=== PATIENT | female | born 1965 | race Caucasian/White ===

== ENCOUNTER 2021-07-03 14:12 | Inpatient (IN) | payer OTHER ==
[~2021-07-03] VITALS: Ht 154.9 cm; Wt 59.8 kg
[2021-07-03 15:08] LABS: ALANINE AMINOTRANSFERASE 25 U/L (12-78); ANION GAP 9 mmol/L (5-15); CALCIUM 8.7 mg/dL (8.5-10.1); CHLORIDE 95 mmol/L (98-107)
[2021-07-03 15:09] LABS: BASOPHILS % (AUTO) 0 % (0-1); EOSINOPHILS % (AUTO) 0 % (1-7); LYMPHOCYTES % (AUTO) 8 % (22-44); MEAN CORPUSCULAR HEMOGLOBIN 26.8 pg (27.0-34.8); MEAN CORPUSCULAR HGB CONC 32.4 g/dL (32.4-35.8); MEAN PLATELET VOLUME 6.9 fL (7.4-10.4); MONOCYTES % (AUTO) 7 % (2-9); NEUTROPHILS % (AUTO) 85 % (42-75); PLATELET COUNT 308 x10^3/uL (130-400); RED BLOOD COUNT 3.11 x10^6/uL (3.82-5.3); RED CELL DISTRIBUTION WIDTH 15.8 % (9.6-15.2)
[2021-07-03 15:12] LABS: ALKALINE PHOSPHATASE 88 U/L (45-117); BILIRUBIN,TOTAL 0.5 mg/dL (0.2-1.0); TOTAL PROTEIN 6.8 g/dL (6.4-8.2); TROPONIN I 0.035 ng/mL (0.000-0.045)
[2021-07-03 15:42] LABS: ANISOCYTOSIS 1+; HYPOCHROMIA 1+; STOMATOCYTES 1+
[2021-07-03 15:43] LABS: POLYCHROMASIA 1+
[2021-07-03 15:44] LABS: <PLATELET ESTIMATE> ADEQUATE; <PLT MORPHOLOGY> NORMAL PLT MORPH
[2021-07-03] MEDS ORDERED: SODIUM CHLORIDE 0.9% 1,000 ML IV ONE (17:00)
[2021-07-03] MEDS ORDERED: SODIUM CHLORIDE FLUSH 10ML SYR IVF PRN (17:00)
[2021-07-03] MEDS ORDERED: POTASSIUM CHLORIDE 20 MEQ TAB.ER.PRT PO ONE (17:00)
[2021-07-03 17:20] LABS: MICROSCOPIC AUTO
[2021-07-03] MEDS ORDERED: POTASSIUM CHLORIDE 20 MEQ TAB.ER.PRT ONE (17:26)
--- NOTE | 2021-07-03 18:10 | NUR ---
PHONE REPORT TO JONO GUZMAN
[2021-07-03] MEDS ORDERED: ENALAPRILAT 1.25 MG/ML, 1ML ONE ×2 (18:17→19:47)
[2021-07-03] MEDS ORDERED: LABETALOL 5MG/ML, 20ML IVPush ONE ×2 (18:30→21:00)
[2021-07-03] MEDS ORDERED: ENALAPRILAT 1.25 MG/ML, 2ML IV ONE (18:30)
--- NOTE | 2021-07-03 18:44 | NUR ---
REPORT TO JONO ROMAN
--- NOTE | 2021-07-03 19:09 | NUR ---
receieved report from Marzena RN, pt to be admitted
[2021-07-03 20:04] VITALS: BP 185/98
[2021-07-03] MEDS ORDERED: TRAM50TA2 PO (20:07)
[2021-07-03] MEDS ORDERED: TORS20TA2 PO (20:07)
[2021-07-03] MEDS: ENALAPRILAT 1.25 MG/ML, 2ML IVPush PRN (20:10)
[2021-07-03 20:40] VITALS: BP 177/76
[2021-07-03] MEDS ORDERED: LABETALOL 5MG/ML, 20ML ONE (20:48)
[2021-07-03 21:30] VITALS: BP 145/67
[2021-07-03 23:25] LABS: IRON LEVEL 43 mcg/dL (50-170)
[2021-07-03 23:28] LABS: TROPONIN I 0.058 ng/mL (0.000-0.045)
[2021-07-03 23:30] LABS: % IRON SATURATION 14 % (20-55); TOTAL IRON BINDING CAPACITY 315 mcg/dL (250-450)
[2021-07-03 23:38] VITALS: BP 149/73
[2021-07-04] MEDS ORDERED: NITROGLYCERIN 0.4 MG/SPRAY SL PRN (01:00)
[2021-07-04] MEDS ORDERED: CALCIUM CARBONATE 500 MG TAB.CHEW PO ONE (01:00)
[2021-07-04] MEDS ORDERED: NITROGLYCERIN 0.4 MG BOTTLE (25 TABS) SL PRN (01:00)
[2021-07-04] MEDS: ACETAMINOPHEN 325 MG TABLET PO PRN (01:16)
[2021-07-04 04:51] LABS: BASOPHILS % (AUTO) 0 % (0-1); EOSINOPHILS % (AUTO) 0 % (1-7); LYMPHOCYTES % (AUTO) 9 % (22-44); MEAN CORPUSCULAR HEMOGLOBIN 26.9 pg (27.0-34.8); MEAN CORPUSCULAR HGB CONC 32.4 g/dL (32.4-35.8); MEAN PLATELET VOLUME 7.3 fL (7.4-10.4); MONOCYTES % (AUTO) 8 % (2-9); NEUTROPHILS % (AUTO) 82 % (42-75); PLATELET COUNT 258 x10^3/uL (130-400); RED BLOOD COUNT 2.89 x10^6/uL (3.82-5.3); RED CELL DISTRIBUTION WIDTH 15.8 % (9.6-15.2)
[2021-07-04 05:02] LABS: CALCIUM 8.6 mg/dL (8.5-10.1)
[2021-07-04 05:08] LABS: CREATININE 1.15 mg/dL (0.55-1.02); TROPONIN I 0.042 ng/mL (0.000-0.045)
[2021-07-04 05:11] LABS: ANION GAP 9 mmol/L (5-15); CHLORIDE 99 mmol/L (98-107)
[2021-07-04] MEDS ORDERED: POTASSIUM CHLORIDE 40 MEQ in SODIUM CHLORIDE 0.9% 500 ML IV ONE (06:00)
[2021-07-04 08:54] VITALS: BP 157/74
[2021-07-04] MEDS: IRON SUCROSE COMPLEX 100MG/5ML IV SCH (09:23)
[2021-07-04] MEDS: PANTOPRAZOLE 40 MG IV IVPush SCH ×2 (09:23→21:06)
[2021-07-04] MEDS: MORPHINE SULFATE 4 MG/ML, 1ML IVPush PRN ×2 (09:39→23:00)
[2021-07-04 13:23] LABS: ANION GAP 9 mmol/L (5-15); CALCIUM 8.5 mg/dL (8.5-10.1); CHLORIDE 100 mmol/L (98-107); CREATININE 1.14 mg/dL (0.55-1.02)
[2021-07-04] MEDS: NS + 40MEQ KCL 1,000 ML IV SCH (13:48)
[2021-07-04 16:20] VITALS: BP 150/72
[2021-07-04] MEDS: POTASSIUM CHLORIDE 20 MEQ TAB.ER.PRT PO SCH ×2 (17:28→21:06)
[2021-07-04 17:45] LABS: ANA SCREEN POSITIVE (Negative)
[2021-07-04 17:50] LABS: ANTI-NUCLEAR ANTIBODY PATTERN SPECKLED
[2021-07-04 20:00] VITALS: BP 178/74
[2021-07-04] MEDS ORDERED: ENALAPRILAT 1.25 MG/ML, 1ML ONE (21:11)
[2021-07-04] MEDS: ENALAPRILAT 1.25 MG/ML, 2ML IVPush PRN (22:04)
[2021-07-04 23:00] VITALS: BP 164/83
[2021-07-05 02:00] VITALS: BP 161/72
[2021-07-05] MEDS: MORPHINE SULFATE 4 MG/ML, 1ML IVPush PRN ×3 (03:27→20:37)
[2021-07-05] MEDS ORDERED: FAMOTIDINE 20 MG/2 ML IVPush ONE (03:30)
[2021-07-05] MEDS: NS + 40MEQ KCL 1,000 ML IV SCH ×2 (03:37→13:43)
[2021-07-05] MEDS ORDERED: CHLORHEXIDINE 15 ML UDC ONE (07:10)
[2021-07-05] MEDS ORDERED: PROPOFOL 10 MG/ML, 20ML ONE (07:42)
[2021-07-05 08:00] VITALS: BP 161/72
[2021-07-05] MEDS ORDERED: FENTANYL PF 100 MCG/2ML IV PRN (08:00)
[2021-07-05] MEDS ORDERED: OXYcodone 5 MG/5 ML ORAL.SOL UDC PO PRN (08:00)
[2021-07-05] MEDS ORDERED: MEPERIDINE/PF 25MG/0.5ML IVPush PRN (08:00)
[2021-07-05] MEDS ORDERED: METOPROLOL 1 MG/ML, 5ML IV PRN (08:00)
[2021-07-05] MEDS ORDERED: METHOCARBAMOL 1,000 MG in DEXTROSE 5% 100 ML IV PRN (08:00)
[2021-07-05] MEDS ORDERED: PROMETHAZINE 25 MG SUPP PR PRN (08:00)
[2021-07-05] MEDS ORDERED: ONDANSETRON 2MG/ML, 2ML IVPush PRN (08:00)
[2021-07-05] MEDS ORDERED: LORazepam 2 MG/ML, 1ML IVPush PRN (08:00)
[2021-07-05] MEDS ORDERED: hydrALAzine 20 MG/ML, 1ML IV PRN (08:00)
[2021-07-05] MEDS ORDERED: LABETALOL 5MG/ML, 20ML IV PRN (08:00)
[2021-07-05] MEDS ORDERED: ACETAMINOPHEN 325 MG TABLET PO PRN (08:00)
[2021-07-05] MEDS ORDERED: PROMETHAZINE 25 MG/ML, 1ML IVPush PRN (08:00)
[2021-07-05] MEDS ORDERED: ONDANSETRON 2MG/ML, 2ML ONE (08:41)
[2021-07-05] MEDS ORDERED: hydrALAzine 20 MG/ML, 1ML ONE (08:44)
[2021-07-05] MEDS: PANTOPRAZOLE 40 MG IV IVPush SCH ×2 (09:41→20:37)
[2021-07-05] MEDS: IRON SUCROSE COMPLEX 100MG/5ML IV SCH (09:41)
[2021-07-05 11:17] LABS: BASOPHILS % (AUTO) 0 % (0-1); EOSINOPHILS % (AUTO) 0 % (1-7); LYMPHOCYTES % (AUTO) 7 % (22-44); MEAN CORPUSCULAR HEMOGLOBIN 27.4 pg (27.0-34.8); MEAN CORPUSCULAR HGB CONC 32.6 g/dL (32.4-35.8); MEAN PLATELET VOLUME 7.6 fL (7.4-10.4); MONOCYTES % (AUTO) 7 % (2-9); NEUTROPHILS % (AUTO) 86 % (42-75); PLATELET COUNT 254 x10^3/uL (130-400); RED BLOOD COUNT 2.84 x10^6/uL (3.82-5.3); RED CELL DISTRIBUTION WIDTH 16.2 % (9.6-15.2)
[2021-07-05 11:28] LABS: ALBUMIN 2.8 g/dL (3.4-5.0); ANION GAP 9 mmol/L (5-15); CALCIUM 8.9 mg/dL (8.5-10.1); CHLORIDE 102 mmol/L (98-107)
[2021-07-05 11:32] LABS: ALANINE AMINOTRANSFERASE 20 U/L (12-78); ALKALINE PHOSPHATASE 81 U/L (45-117); BILIRUBIN,TOTAL 0.6 mg/dL (0.2-1.0); CREATININE 1.22 mg/dL (0.55-1.02); TOTAL PROTEIN 6.1 g/dL (6.4-8.2)
[2021-07-05] MEDS ORDERED: FUROSEMIDE 20 MG/2 ML IV SCH (12:30)
[2021-07-05 15:30] VITALS: BP 152/83
[2021-07-05 18:44] VITALS: BP 170/84
[2021-07-05] MEDS ORDERED: ENALAPRILAT 1.25 MG/ML, 1ML ONE (20:44)
[2021-07-05] MEDS: ENALAPRILAT 1.25 MG/ML, 2ML IVPush PRN (20:49)
[2021-07-05 23:58] VITALS: BP 151/78
[2021-07-06] MEDS: MORPHINE SULFATE 4 MG/ML, 1ML IVPush PRN ×4 (01:23→20:18)
[2021-07-06 05:21] LABS: BASOPHILS % (AUTO) 0 % (0-1); EOSINOPHILS % (AUTO) 1 % (1-7); LYMPHOCYTES % (AUTO) 8 % (22-44); MEAN CORPUSCULAR HEMOGLOBIN 27.2 pg (27.0-34.8); MEAN CORPUSCULAR HGB CONC 32.1 g/dL (32.4-35.8); MEAN PLATELET VOLUME 7.7 fL (7.4-10.4); MONOCYTES % (AUTO) 7 % (2-9); NEUTROPHILS % (AUTO) 84 % (42-75); PLATELET COUNT 208 x10^3/uL (130-400); RED BLOOD COUNT 2.63 x10^6/uL (3.82-5.3); RED CELL DISTRIBUTION WIDTH 16.6 % (9.6-15.2)
[2021-07-06 05:33] LABS: CHLORIDE 102 mmol/L (98-107)
[2021-07-06 05:40] LABS: ANION GAP 7 mmol/L (5-15); CALCIUM 8.8 mg/dL (8.5-10.1); CREATININE 1.45 mg/dL (0.55-1.02)
[2021-07-06] MEDS: NS + 40MEQ KCL 1,000 ML IV SCH (05:40)
[2021-07-06] MEDS: DIPHENHYDRAMINE 25 MG CAPSULE PO PRN (05:46)
[2021-07-06 08:50] VITALS: BP 135/68
[2021-07-06] MEDS: IRON SUCROSE COMPLEX 100MG/5ML IV SCH (09:34)
[2021-07-06 14:10] VITALS: BP 156/81
[2021-07-06] MEDS: PANTOPRAZOLE 40MG TABLET PO SCH (15:56)
[2021-07-06] MEDS: AMPICILLIN/SULBACTAM 3 GM in SODIUM CHLORIDE 0.9% 100 ML IV SCH (17:00)
[2021-07-07] VITALS (8 sets, daily range): BP systolic 158–180; BP diastolic 77–95
[2021-07-07] MEDS: AMPICILLIN/SULBACTAM 3 GM in SODIUM CHLORIDE 0.9% 100 ML IV SCH ×3 (01:10→17:26)
[2021-07-07] MEDS: MORPHINE SULFATE 4 MG/ML, 1ML IVPush PRN ×5 (01:10→22:51)
[2021-07-07] MEDS: DIPHENHYDRAMINE 25 MG CAPSULE PO PRN (05:25)
[2021-07-07] MEDS: PANTOPRAZOLE 40MG TABLET PO SCH ×2 (05:32→15:27)
[2021-07-07 06:21] LABS: BASOPHILS % (AUTO) 1 % (0-1); EOSINOPHILS % (AUTO) 1 % (1-7); LYMPHOCYTES % (AUTO) 8 % (22-44); MEAN CORPUSCULAR HEMOGLOBIN 27.2 pg (27.0-34.8); MEAN CORPUSCULAR HGB CONC 31.4 g/dL (32.4-35.8); MEAN PLATELET VOLUME 7.6 fL (7.4-10.4); MONOCYTES % (AUTO) 8 % (2-9); NEUTROPHILS % (AUTO) 83 % (42-75); PLATELET COUNT 245 x10^3/uL (130-400); RED BLOOD COUNT 2.72 x10^6/uL (3.82-5.3); RED CELL DISTRIBUTION WIDTH 16.5 % (9.6-15.2)
[2021-07-07 06:22] LABS: CHLORIDE 100 mmol/L (98-107)
[2021-07-07 06:28] LABS: ANION GAP 8 mmol/L (5-15); CALCIUM 8.8 mg/dL (8.5-10.1); CREATININE 1.57 mg/dL (0.55-1.02)
[2021-07-07] MEDS ORDERED: SODIUM CHLORIDE 0.9% 1,000 ML IV SCH (07:30)
[2021-07-07] MEDS: IRON SUCROSE COMPLEX 100MG/5ML IV SCH (08:41)
[2021-07-07] MEDS: SODIUM CHLORIDE 0.9% 1,000 ML IV SCH ×2 (08:41→22:10)
[2021-07-07] MEDS: DIPHENHYDRAMINE 50 MG/ML, 1ML IVPush PRN ×3 (09:10→22:10)
[2021-07-07] MEDS ORDERED: AMLODIPINE 5 MG TABLET PO ONE (16:00)
[2021-07-07] MEDS: hydrALAzine 20 MG/ML, 1ML IV PRN ×2 (18:24→22:51)
[2021-07-08 00:30] VITALS: BP 164/73
[2021-07-08] MEDS: AMPICILLIN/SULBACTAM 3 GM in SODIUM CHLORIDE 0.9% 100 ML IV SCH ×3 (00:30→16:52)
[2021-07-08] MEDS: MORPHINE SULFATE 4 MG/ML, 1ML IVPush PRN ×3 (03:42→21:46)
[2021-07-08] MEDS: PANTOPRAZOLE 40MG TABLET PO SCH ×2 (05:36→16:52)
[2021-07-08] MEDS: DIPHENHYDRAMINE 50 MG/ML, 1ML IVPush PRN ×3 (05:40→23:16)
[2021-07-08 06:24] LABS: CALCIUM 8.8 mg/dL (8.5-10.1); CHLORIDE 102 mmol/L (98-107); MEAN CORPUSCULAR HEMOGLOBIN 27.8 pg (27.0-34.8); MEAN PLATELET VOLUME 7.8 fL (7.4-10.4); PLATELET COUNT 257 x10^3/uL (130-400); RED BLOOD COUNT 2.76 x10^6/uL (3.82-5.3); RED CELL DISTRIBUTION WIDTH 17.5 % (9.6-15.2)
[2021-07-08 06:32] LABS: ANION GAP 10 mmol/L (5-15); CREATININE 1.59 mg/dL (0.55-1.02)
[2021-07-08 07:16] LABS: BAND#(MANUAL) 0.18 x10^3/uL; BANDS%(MANUAL) 1 % (0-7); EOS#(MANUAL) 0.18 x10^3/uL (0.0-0.4); EOS% (MANUAL) 1 % (1-7); LYMPH#(MANUAL) 0.18 x10^3/uL (1-3.4); LYMPHS% (MANUAL) 1 % (22-44); METAMYELOCYTES# (MANUAL) 0.18 x10^3/uL (0-0); METAMYELOCYTES% (MANUAL) 1 % (0-1); MONOS#(MANUAL) 0.36 x10^3/uL (0.3-2.7); MONOS% (MANUAL) 2 % (2-9); SEG#(MANUAL) 17.11 x10^3/uL (1.8-6.8); SEGS% (MANUAL) 94 % (42-75)
[2021-07-08 07:17] LABS: <PLATELET ESTIMATE> ADEQUATE; <PLT MORPHOLOGY> NORMAL PLT MORPH; ANISOCYTOSIS 1+; POLYCHROMASIA 1+; TEAR DROPS 1+
[2021-07-08] MEDS ORDERED: SODIUM CHLORIDE 0.9% 1,000 ML IV SCH (07:30)
[2021-07-08] MEDS: IRON SUCROSE COMPLEX 100MG/5ML IV SCH (08:49)
[2021-07-08] MEDS: AMLODIPINE 5 MG TABLET PO SCH (08:49)
[2021-07-08 09:36] VITALS: BP 184/94
[2021-07-08] MEDS: hydrALAzine 20 MG/ML, 1ML IV PRN ×3 (09:55→21:45)
[2021-07-08 14:33] VITALS: BP 167/90
[2021-07-08 16:46] VITALS: BP 170/92
[2021-07-08] MEDS: BISACODYL 10 MG SUPP PR PRN (19:50)
[2021-07-08 21:14] VITALS: BP 172/86
[2021-07-08 22:51] VITALS: BP 165/85
[2021-07-08] MEDS: SENNA/DOCUSATE TABLET PO SCH (23:34)
[2021-07-09 00:39] VITALS: BP 171/96
[2021-07-09] MEDS: AMPICILLIN/SULBACTAM 3 GM in SODIUM CHLORIDE 0.9% 100 ML IV SCH ×3 (00:39→16:50)
[2021-07-09] MEDS: PANTOPRAZOLE 40MG TABLET PO SCH (06:22)
[2021-07-09 07:11] VITALS: BP 174/99
[2021-07-09] MEDS: AMLODIPINE 5 MG TABLET PO SCH (07:54)
[2021-07-09] MEDS: SENNA/DOCUSATE TABLET PO SCH (07:55)
[2021-07-09] MEDS: ONDANSETRON 2MG/ML, 2ML IVPush PRN ×2 (08:28→15:54)
[2021-07-09 11:17] LABS: MEAN CORPUSCULAR HEMOGLOBIN 27.9 pg (27.0-34.8); MEAN CORPUSCULAR HGB CONC 31.7 g/dL (32.4-35.8); MEAN PLATELET VOLUME 7.4 fL (7.4-10.4); PLATELET COUNT 337 x10^3/uL (130-400); RED BLOOD COUNT 2.79 x10^6/uL (3.82-5.3); RED CELL DISTRIBUTION WIDTH 18.2 % (9.6-15.2)
[2021-07-09 11:27] LABS: ANION GAP 16 mmol/L (5-15); CALCIUM 8.8 mg/dL (8.5-10.1); CHLORIDE 101 mmol/L (98-107); CREATININE 1.96 mg/dL (0.55-1.02)
[2021-07-09 11:47] LABS: BAND#(MANUAL) 0.22 x10^3/uL; BANDS%(MANUAL) 1 % (0-7); LYMPH#(MANUAL) 0.65 x10^3/uL (1-3.4); LYMPHS% (MANUAL) 3 % (22-44); METAMYELOCYTES# (MANUAL) 0.22 x10^3/uL (0-0); METAMYELOCYTES% (MANUAL) 1 % (0-1); MONOS#(MANUAL) 0.65 x10^3/uL (0.3-2.7); MONOS% (MANUAL) 3 % (2-9); SEG#(MANUAL) 19.87 x10^3/uL (1.8-6.8); SEGS% (MANUAL) 92 % (42-75)
[2021-07-09 11:48] LABS: ANISOCYTOSIS 1+; POLYCHROMASIA 1+
[2021-07-09 11:49] LABS: <PLATELET ESTIMATE> ADEQUATE; <PLT MORPHOLOGY> NORMAL PLT MORPH
[2021-07-09] MEDS: PANTOPRAZOLE 40 MG IV IVPush SCH (13:14)
[2021-07-09] MEDS: methylPREDNISolone SOD SUCC 40 MG/ML IV SCH (13:15)
[2021-07-09 13:27] VITALS: BP 174/83
[2021-07-09] MEDS: hydrALAzine 20 MG/ML, 1ML IV PRN ×2 (15:05→21:33)
[2021-07-09] MEDS: DIPHENHYDRAMINE 50 MG/ML, 1ML IVPush PRN ×2 (15:54→21:59)
[2021-07-09] MEDS: FERROUS GLUCONATE 324 MG TABLET PO SCH (17:00)
[2021-07-09 21:08] VITALS: BP 204/98
[2021-07-10] MEDS: AMPICILLIN/SULBACTAM 3 GM in SODIUM CHLORIDE 0.9% 100 ML IV SCH ×3 (00:48→17:03)
[2021-07-10] MEDS: methylPREDNISolone SOD SUCC 40 MG/ML IV SCH ×2 (00:49→08:08)
[2021-07-10] MEDS: PANTOPRAZOLE 40 MG IV IVPush SCH (00:49)
[2021-07-10 01:06] VITALS: BP 192/91
[2021-07-10] MEDS: hydrALAzine 20 MG/ML, 1ML IV PRN ×3 (01:15→19:45)
[2021-07-10] MEDS: DIPHENHYDRAMINE 50 MG/ML, 1ML IVPush PRN ×4 (03:56→22:52)
[2021-07-10 07:15] VITALS: BP 185/78
[2021-07-10] MEDS: AMLODIPINE 5 MG TABLET PO SCH (07:49)
[2021-07-10] MEDS: FERROUS GLUCONATE 324 MG TABLET PO SCH ×2 (07:50→17:00)
[2021-07-10] MEDS: SENNA/DOCUSATE TABLET PO SCH (07:50)
[2021-07-10] MEDS: FUROSEMIDE 20 MG/2 ML IV SCH (07:51)
[2021-07-10 08:06] LABS: MEAN CORPUSCULAR HEMOGLOBIN 28.1 pg (27.0-34.8); MEAN CORPUSCULAR HGB CONC 32.1 g/dL (32.4-35.8); MEAN PLATELET VOLUME 6.9 fL (7.4-10.4); PLATELET COUNT 359 x10^3/uL (130-400); RED BLOOD COUNT 2.78 x10^6/uL (3.82-5.3)
[2021-07-10] MEDS: ACETAMINOPHEN 325 MG TABLET PO PRN (08:06)
[2021-07-10 08:19] LABS: CALCIUM 8.3 mg/dL (8.5-10.1); CREATININE 2.21 mg/dL (0.55-1.02)
[2021-07-10 08:28] LABS: CHLORIDE 98 mmol/L (98-107)
[2021-07-10 08:33] LABS: ANION GAP 14 mmol/L (5-15)
[2021-07-10 08:43] LABS: BAND#(MANUAL) 0.19 x10^3/uL; BANDS%(MANUAL) 1 % (0-7); LYMPH#(MANUAL) 0.97 x10^3/uL (1-3.4); LYMPHS% (MANUAL) 5 % (22-44); MONOS#(MANUAL) 0.19 x10^3/uL (0.3-2.7); MONOS% (MANUAL) 1 % (2-9); SEG#(MANUAL) 18.04 x10^3/uL (1.8-6.8); SEGS% (MANUAL) 93 % (42-75)
[2021-07-10 08:44] LABS: <PLATELET ESTIMATE> ADEQUATE; <PLT MORPHOLOGY> NORMAL PLT MORPH; ANISOCYTOSIS 2+; POLYCHROMASIA 1+
[2021-07-10] MEDS ORDERED: PANTOPRAZOLE 40 MG IV IVPush SCH (09:00)
[2021-07-10] MEDS ORDERED: FUROSEMIDE 40 MG/4 ML IV ONE (11:00)
[2021-07-10 12:20] VITALS: BP 175/81
[2021-07-10] MEDS: MORPHINE SULFATE 4 MG/ML, 1ML IVPush PRN ×3 (14:19→22:31)
[2021-07-10] MEDS: ONDANSETRON 2MG/ML, 2ML IVPush PRN (18:42)
[2021-07-10 19:20] VITALS: BP 178/85
[2021-07-11] MEDS: AMPICILLIN/SULBACTAM 3 GM in SODIUM CHLORIDE 0.9% 100 ML IV SCH ×3 (00:29→10:43)
[2021-07-11 00:33] VITALS: BP 170/82
[2021-07-11] MEDS: hydrALAzine 20 MG/ML, 1ML IV PRN ×2 (00:40→06:41)
[2021-07-11] MEDS: MORPHINE SULFATE 4 MG/ML, 1ML IVPush PRN ×5 (02:37→22:31)
[2021-07-11] MEDS: DIPHENHYDRAMINE 50 MG/ML, 1ML IVPush PRN ×4 (04:58→23:05)
[2021-07-11] MEDS: PANTOPRAZOLE 40MG TABLET PO SCH (04:58)
[2021-07-11 06:38] VITALS: BP 175/89
[2021-07-11] MEDS: FERROUS GLUCONATE 324 MG TABLET PO SCH ×2 (08:00→16:21)
[2021-07-11] MEDS ORDERED: CAPTOPRIL 12.5 MG TABLET PO SCH (09:51)
[2021-07-11] MEDS: ISOSORBIDE MONONITRATE ER 30 MG TABLET PO SCH (10:04)
[2021-07-11] MEDS: SENNA/DOCUSATE TABLET PO SCH (10:04)
[2021-07-11] MEDS: methylPREDNISolone SOD SUCC 40 MG/ML IV SCH (10:05)
[2021-07-11] MEDS: FUROSEMIDE 20 MG/2 ML IV SCH (10:05)
[2021-07-11 10:09] LABS: MEAN CORPUSCULAR HEMOGLOBIN 28.2 pg (27.0-34.8); MEAN CORPUSCULAR HGB CONC 32.2 g/dL (32.4-35.8); PLATELET COUNT 376 x10^3/uL (130-400); RED BLOOD COUNT 2.83 x10^6/uL (3.82-5.3); RED CELL DISTRIBUTION WIDTH 21.7 % (9.6-15.2)
[2021-07-11 10:19] LABS: CHLORIDE 93 mmol/L (98-107)
[2021-07-11 10:25] LABS: ANION GAP 13 mmol/L (5-15); CALCIUM 8.6 mg/dL (8.5-10.1); CREATININE 2.51 mg/dL (0.55-1.02)
[2021-07-11 10:35] LABS: BAND#(MANUAL) 0.25 x10^3/uL; BANDS%(MANUAL) 1 % (0-7); LYMPH#(MANUAL) 1.02 x10^3/uL (1-3.4); LYMPHS% (MANUAL) 4 % (22-44); METAMYELOCYTES# (MANUAL) 0.25 x10^3/uL (0-0); METAMYELOCYTES% (MANUAL) 1 % (0-1); MONOS#(MANUAL) 2.03 x10^3/uL (0.3-2.7); MONOS% (MANUAL) 8 % (2-9); MYELOCYTES# (MANUAL) 0.25 x10^3/uL (0-0); MYELOCYTES% (MANUAL) 1 % (0-0); SEG#(MANUAL) 21.59 x10^3/uL (1.8-6.8); SEGS% (MANUAL) 85 % (42-75)
[2021-07-11 10:36] LABS: <PLATELET ESTIMATE> ADEQUATE; <PLT MORPHOLOGY> NORMAL PLT MORPH; ANISOCYTOSIS 2+; POLYCHROMASIA 1+
[2021-07-11] MEDS ORDERED: FUROSEMIDE 40 MG/4 ML IV ONE (12:00)
[2021-07-11] MEDS ORDERED: POTASSIUM CHLORIDE 20 MEQ TAB.ER.PRT PO ONE (12:00)
[2021-07-11 12:17] VITALS: BP 135/68
[2021-07-11 14:54] LABS: HCT (SEDRATE) 23.9 % (34.6-47.8)
[2021-07-11 16:12] VITALS: BP 161/74
[2021-07-11] MEDS: CAPTOPRIL 12.5 MG TABLET PO SCH ×2 (16:20→21:43)
[2021-07-11 19:24] VITALS: BP 146/64
[2021-07-11] MEDS: FAMOTIDINE 20 MG TABLET PO SCH (21:42)
[2021-07-12 00:38] VITALS: BP 139/72
[2021-07-12] MEDS: MORPHINE SULFATE 4 MG/ML, 1ML IVPush PRN ×4 (02:44→20:06)
[2021-07-12] MEDS: DIPHENHYDRAMINE 50 MG/ML, 1ML IVPush PRN ×3 (05:41→20:45)
[2021-07-12] MEDS: PANTOPRAZOLE 40MG TABLET PO SCH (05:41)
[2021-07-12 06:21] VITALS: BP 160/76
[2021-07-12 07:29] LABS: MEAN CORPUSCULAR HEMOGLOBIN 27.8 pg (27.0-34.8); MEAN CORPUSCULAR HGB CONC 31.5 g/dL (32.4-35.8); PLATELET COUNT 347 x10^3/uL (130-400); RED BLOOD COUNT 2.81 x10^6/uL (3.82-5.3); RED CELL DISTRIBUTION WIDTH 21.8 % (9.6-15.2)
[2021-07-12 07:34] LABS: ANION GAP 12 mmol/L (5-15); CALCIUM 8.5 mg/dL (8.5-10.1); CHLORIDE 94 mmol/L (98-107); CREATININE 2.66 mg/dL (0.55-1.02)
[2021-07-12] MEDS: FERROUS GLUCONATE 324 MG TABLET PO SCH ×2 (08:00→17:41)
[2021-07-12 08:16] VITALS: BP 161/77
[2021-07-12] MEDS: FAMOTIDINE 20 MG TABLET PO SCH (08:18)
[2021-07-12] MEDS: SENNA/DOCUSATE TABLET PO SCH (08:19)
[2021-07-12] MEDS: ISOSORBIDE MONONITRATE ER 30 MG TABLET PO SCH (08:19)
[2021-07-12] MEDS: methylPREDNISolone SOD SUCC 40 MG/ML IV SCH (08:19)
[2021-07-12] MEDS: CAPTOPRIL 12.5 MG TABLET PO SCH (08:22)
[2021-07-12 09:11] LABS: BASOS#(MANUAL) 0.21 x10^3/uL (0-0.1); BASOS% (MANUAL) 1 % (0-1); LYMPH#(MANUAL) 0.42 x10^3/uL (1-3.4); LYMPHS% (MANUAL) 2 % (22-44); METAMYELOCYTES# (MANUAL) 0.21 x10^3/uL (0-0); METAMYELOCYTES% (MANUAL) 1 % (0-1); MONOS#(MANUAL) 1.46 x10^3/uL (0.3-2.7); MONOS% (MANUAL) 7 % (2-9); SEG#(MANUAL) 18.51 x10^3/uL (1.8-6.8); SEGS% (MANUAL) 89 % (42-75)
[2021-07-12 09:12] LABS: <PLATELET ESTIMATE> ADEQUATE; <PLT MORPHOLOGY> NORMAL PLT MORPH; ANISOCYTOSIS 2+; POLYCHROMASIA 1+
[2021-07-12 09:34] LABS: INTERNATIONAL NORMALIZED RATIO 1.17 (0.93-1.1); PROTHROMBIN TIME 12.4 Seconds (9.6-11.5)
[2021-07-12] MEDS ORDERED: FLUMAZENIL 0.1 MG/1 ML, 5ML ONE (10:18)
[2021-07-12] MEDS ORDERED: NALOXONE 1 MG/ML, 2ML ONE (10:18)
[2021-07-12] MEDS ORDERED: FENTANYL PF 100 MCG/2ML ONE (10:18)
[2021-07-12] MEDS ORDERED: MIDAZOLAM 1 MG/ML, 5ML ONE ×2 (10:18)
[2021-07-12] MEDS ORDERED: FUROSEMIDE 40 MG/4 ML IV ONE (12:30)
[2021-07-12 13:24] VITALS: BP 165/49
[2021-07-12] MEDS: POTASSIUM CHLORIDE 20 MEQ PACKET PO SCH (17:41)
[2021-07-12] MEDS: CAPTOPRIL 25 MG TABLET PO SCH ×2 (17:43→22:36)
[2021-07-12 19:19] VITALS: BP 145/79
[2021-07-12 22:37] VITALS: BP 154/69
[2021-07-13] MEDS: MORPHINE SULFATE 4 MG/ML, 1ML IVPush PRN ×5 (01:11→20:39)
[2021-07-13 01:16] VITALS: BP 153/75
[2021-07-13] MEDS: DIPHENHYDRAMINE 50 MG/ML, 1ML IVPush PRN ×3 (02:57→17:47)
[2021-07-13] MEDS: PANTOPRAZOLE 40MG TABLET PO SCH (05:30)
[2021-07-13 05:39] LABS: MEAN CORPUSCULAR HEMOGLOBIN 29.2 pg (27.0-34.8); MEAN CORPUSCULAR HGB CONC 33.2 g/dL (32.4-35.8); MEAN PLATELET VOLUME 7.4 fL (7.4-10.4); PLATELET COUNT 306 x10^3/uL (130-400); RED BLOOD COUNT 2.61 x10^6/uL (3.82-5.3); RED CELL DISTRIBUTION WIDTH 21.5 % (9.6-15.2)
[2021-07-13 06:10] LABS: ANION GAP 11 mmol/L (5-15); CALCIUM 8.3 mg/dL (8.5-10.1); CHLORIDE 95 mmol/L (98-107)
[2021-07-13 06:12] LABS: CREATININE 2.88 mg/dL (0.55-1.02)
[2021-07-13 06:25] VITALS: BP 160/68
[2021-07-13 06:55] LABS: LYMPHS% (MANUAL) 4 % (22-44); METAMYELOCYTES% (MANUAL) 2 % (0-1); MONOS#(MANUAL) 0.15 x10^3/uL (0.3-2.7); MONOS% (MANUAL) 1 % (2-9); MYELOCYTES# (MANUAL) 0.15 x10^3/uL (0-0); MYELOCYTES% (MANUAL) 1 % (0-0); SEG#(MANUAL) 13.89 x10^3/uL (1.8-6.8); SEGS% (MANUAL) 92 % (42-75)
[2021-07-13 06:56] LABS: <PLATELET ESTIMATE> ADEQUATE; <PLT MORPHOLOGY> NORMAL PLT MORPH; ANISOCYTOSIS 2+; MICROCYTOSIS 1+; OVALOCYTES 1+; POLYCHROMASIA 1+; TEAR DROPS 1+
[2021-07-13] MEDS: POTASSIUM CHLORIDE 20 MEQ PACKET PO SCH ×2 (08:33→16:23)
[2021-07-13] MEDS: ISOSORBIDE MONONITRATE ER 30 MG TABLET PO SCH (08:34)
[2021-07-13] MEDS: FAMOTIDINE 20 MG TABLET PO SCH (08:34)
[2021-07-13] MEDS: FERROUS GLUCONATE 324 MG TABLET PO SCH ×2 (08:34→16:23)
[2021-07-13] MEDS: CAPTOPRIL 25 MG TABLET PO SCH ×3 (08:34→20:38)
[2021-07-13] MEDS: SENNA/DOCUSATE TABLET PO SCH (08:34)
[2021-07-13 12:54] VITALS: BP 155/82
[2021-07-13 19:22] VITALS: BP 157/77
[2021-07-13 20:21] LABS: CHLORIDE,URINE RANDOM 26 mmol/L; POTASSIUM,URINE RANDOM 52 mmol/L; SODIUM,URINE RANDOM 11 mmol/L
[2021-07-14] VITALS (7 sets, daily range): BP systolic 154–197; BP diastolic 70–98
[2021-07-14] MEDS: hydrALAzine 20 MG/ML, 1ML IV PRN ×2 (00:07→20:18)
[2021-07-14] MEDS: DIPHENHYDRAMINE 50 MG/ML, 1ML IVPush PRN ×3 (00:07→19:45)
[2021-07-14] MEDS: MORPHINE SULFATE 4 MG/ML, 1ML IVPush PRN ×5 (00:50→21:00)
[2021-07-14 04:13] LABS: MEAN CORPUSCULAR HEMOGLOBIN 28.6 pg (27.0-34.8); MEAN CORPUSCULAR HGB CONC 32.2 g/dL (32.4-35.8); MEAN PLATELET VOLUME 7.4 fL (7.4-10.4); PLATELET COUNT 385 x10^3/uL (130-400); RED BLOOD COUNT 2.89 x10^6/uL (3.82-5.3); RED CELL DISTRIBUTION WIDTH 22.9 % (9.6-15.2)
[2021-07-14 04:23] LABS: ANION GAP 13 mmol/L (5-15); CALCIUM 8.7 mg/dL (8.5-10.1); CHLORIDE 97 mmol/L (98-107)
[2021-07-14 04:24] LABS: CREATININE 3.04 mg/dL (0.55-1.02)
[2021-07-14] MEDS: PANTOPRAZOLE 40MG TABLET PO SCH (04:57)
[2021-07-14 05:38] LABS: <PLATELET ESTIMATE> ADEQUATE; <PLT MORPHOLOGY> NORMAL PLT MORPH; ANISOCYTOSIS 2+; LYMPHS% (MANUAL) 7 % (22-44); MICROCYTOSIS 1+; MONOS#(MANUAL) 1.07 x10^3/uL (0.3-2.7); MONOS% (MANUAL) 5 % (2-9); OVALOCYTES 1+; POLYCHROMASIA 1+; SEG#(MANUAL) 18.83 x10^3/uL (1.8-6.8); SEGS% (MANUAL) 88 % (42-75)
[2021-07-14 05:39] LABS: ECHINOCYTES 1+
[2021-07-14] MEDS: FERROUS GLUCONATE 324 MG TABLET PO SCH ×2 (08:00→16:40)
[2021-07-14] MEDS ORDERED: FUROSEMIDE 40 MG/4 ML IV ONE (08:00)
[2021-07-14] MEDS: SENNA/DOCUSATE TABLET PO SCH (08:14)
[2021-07-14] MEDS: POTASSIUM CHLORIDE 20 MEQ PACKET PO SCH ×2 (08:14→16:40)
[2021-07-14] MEDS: FAMOTIDINE 20 MG TABLET PO SCH (08:15)
[2021-07-14] MEDS: CAPTOPRIL 25 MG TABLET PO SCH ×3 (08:15→21:35)
[2021-07-14] MEDS: ISOSORBIDE MONONITRATE ER 30 MG TABLET PO SCH (08:16)
[2021-07-14] MEDS: MAGNESIUM HYDROXIDE 8%, 30ML UDC PO PRN (11:38)
[2021-07-15] VITALS (8 sets, daily range): BP systolic 156–191; BP diastolic 73–91
[2021-07-15] MEDS: MORPHINE SULFATE 4 MG/ML, 1ML IVPush PRN ×4 (01:12→17:00)
[2021-07-15] MEDS: hydrALAzine 20 MG/ML, 1ML IV PRN ×3 (01:52→20:32)
[2021-07-15] MEDS: DIPHENHYDRAMINE 50 MG/ML, 1ML IVPush PRN ×3 (02:38→17:52)
[2021-07-15] MEDS: PANTOPRAZOLE 40MG TABLET PO SCH (05:34)
[2021-07-15] MEDS: FERROUS GLUCONATE 324 MG TABLET PO SCH ×2 (08:00→16:57)
[2021-07-15] MEDS: ISOSORBIDE MONONITRATE ER 30 MG TABLET PO SCH (08:17)
[2021-07-15] MEDS: CAPTOPRIL 25 MG TABLET PO SCH ×3 (08:17→23:18)
[2021-07-15] MEDS: FAMOTIDINE 20 MG TABLET PO SCH (08:17)
[2021-07-15] MEDS: POTASSIUM CHLORIDE 20 MEQ PACKET PO SCH ×2 (08:18→16:56)
[2021-07-15] MEDS: SENNA/DOCUSATE TABLET PO SCH (08:18)
[2021-07-15 09:21] LABS: ANION GAP 13 mmol/L (5-15); CHLORIDE 97 mmol/L (98-107); CREATININE 3.16 mg/dL (0.55-1.02)
[2021-07-15] MEDS ORDERED: HYDROCORTISONE 100 MG INJ. IVPush PRN (17:00)
[2021-07-15] MEDS: FUROSEMIDE 40 MG/4 ML IV SCH (21:27)
[2021-07-16] MEDS: MORPHINE SULFATE 4 MG/ML, 1ML IVPush PRN ×3 (00:49→16:28)
[2021-07-16 02:05] VITALS: BP 158/77
[2021-07-16] MEDS: DIPHENHYDRAMINE 50 MG/ML, 1ML IVPush PRN ×2 (03:03→08:20)
[2021-07-16 05:36] LABS: MEAN CORPUSCULAR HEMOGLOBIN 28.7 pg (27.0-34.8); MEAN CORPUSCULAR HGB CONC 32.1 g/dL (32.4-35.8); MEAN PLATELET VOLUME 7.4 fL (7.4-10.4); PLATELET COUNT 277 x10^3/uL (130-400); RED BLOOD COUNT 2.92 x10^6/uL (3.82-5.3); RED CELL DISTRIBUTION WIDTH 23.1 % (9.6-15.2)
[2021-07-16 05:39] LABS: % IRON SATURATION 25 % (20-55); ALBUMIN 2.8 g/dL (3.4-5.0); ANION GAP 12 mmol/L (5-15); CALCIUM 8.9 mg/dL (8.5-10.1); CHLORIDE 99 mmol/L (98-107); CREATININE 3.37 mg/dL (0.55-1.02); IRON LEVEL 64 mcg/dL (50-170); TOTAL IRON BINDING CAPACITY 258 mcg/dL (250-450)
[2021-07-16] MEDS: PANTOPRAZOLE 40MG TABLET PO SCH (05:45)
[2021-07-16 06:14] LABS: BAND#(MANUAL) 0.27 x10^3/uL; BANDS%(MANUAL) 1 % (0-7); LYMPH#(MANUAL) 1.92 x10^3/uL (1-3.4); LYMPHS% (MANUAL) 7 % (22-44); METAMYELOCYTES# (MANUAL) 0.27 x10^3/uL (0-0); METAMYELOCYTES% (MANUAL) 1 % (0-1); MONOS#(MANUAL) 0.55 x10^3/uL (0.3-2.7); MONOS% (MANUAL) 2 % (2-9); SEG#(MANUAL) 24.39 x10^3/uL (1.8-6.8); SEGS% (MANUAL) 89 % (42-75)
[2021-07-16 06:16] LABS: ANISOCYTOSIS 2+; POLYCHROMASIA 1+
[2021-07-16 06:17] LABS: <PLATELET ESTIMATE> ADEQUATE; <PLT MORPHOLOGY> NORMAL PLT MORPH; OVALOCYTES 1+
[2021-07-16 07:40] VITALS: BP 178/79
[2021-07-16] MEDS: POTASSIUM CHLORIDE 20 MEQ PACKET PO SCH ×2 (08:00→08:19)
[2021-07-16] MEDS: FERROUS GLUCONATE 324 MG TABLET PO SCH ×2 (08:00→16:25)
[2021-07-16] MEDS: ISOSORBIDE MONONITRATE ER 30 MG TABLET PO SCH (08:18)
[2021-07-16] MEDS: FUROSEMIDE 40 MG/4 ML IV SCH (08:19)
[2021-07-16] MEDS: CAPTOPRIL 25 MG TABLET PO SCH ×3 (08:20→23:17)
[2021-07-16] MEDS: SENNA/DOCUSATE TABLET PO SCH (08:20)
[2021-07-16] MEDS: FAMOTIDINE 20 MG TABLET PO SCH (08:22)
[2021-07-16] MEDS ORDERED: METOLAZONE 2.5 MG TABLET PO SCH (09:00)
[2021-07-16 12:25] VITALS: BP 144/72
[2021-07-16] MEDS: POTASSIUM CHLORIDE 20 MEQ TAB.ER.PRT PO SCH ×2 (17:00→17:28)
[2021-07-16 19:24] VITALS: BP 126/65
[2021-07-16 20:13] VITALS: BP 142/74
[2021-07-16] MEDS: FUROSEMIDE 80 MG TABLET PO SCH (20:19)
[2021-07-16] MEDS: OXYcodone IR 5MG TABLET PO PRN (21:21)
[2021-07-16 23:16] VITALS: BP 148/73
[2021-07-16] MEDS: BISACODYL 10 MG SUPP PR PRN (23:16)
[2021-07-17] MEDS: MAGNESIUM HYDROXIDE 8%, 30ML UDC PO PRN (02:48)
[2021-07-17 02:49] VITALS: BP 142/68
[2021-07-17 05:13] LABS: BASOPHILS % (AUTO) 1 % (0-1); EOSINOPHILS % (AUTO) 0 % (1-7); LYMPHOCYTES % (AUTO) 4 % (22-44); MEAN CORPUSCULAR HEMOGLOBIN 29.1 pg (27.0-34.8); MEAN CORPUSCULAR HGB CONC 32.3 g/dL (32.4-35.8); MEAN PLATELET VOLUME 7.4 fL (7.4-10.4); MONOCYTES % (AUTO) 6 % (2-9); NEUTROPHILS % (AUTO) 89 % (42-75); PLATELET COUNT 181 x10^3/uL (130-400); RED BLOOD COUNT 2.85 x10^6/uL (3.82-5.3); RED CELL DISTRIBUTION WIDTH 23.5 % (9.6-15.2)
[2021-07-17 05:25] LABS: ALBUMIN 2.3 g/dL (3.4-5.0); ANION GAP 9 mmol/L (5-15); CALCIUM 8.3 mg/dL (8.5-10.1); CHLORIDE 95 mmol/L (98-107); CREATININE 3.65 mg/dL (0.55-1.02)
[2021-07-17] MEDS: OXYcodone IR 5MG TABLET PO PRN ×2 (06:44→18:23)
[2021-07-17] MEDS: PANTOPRAZOLE 40MG TABLET PO SCH (06:44)
[2021-07-17 07:31] VITALS: BP 155/66
[2021-07-17] MEDS: FERROUS GLUCONATE 324 MG TABLET PO SCH ×2 (08:00→17:00)
[2021-07-17] MEDS: METOLAZONE 2.5 MG TABLET PO SCH (09:33)
[2021-07-17] MEDS: SENNA/DOCUSATE TABLET PO SCH (09:33)
[2021-07-17] MEDS: FUROSEMIDE 80 MG TABLET PO SCH ×2 (09:34→22:27)
[2021-07-17] MEDS: POTASSIUM CHLORIDE 20 MEQ TAB.ER.PRT PO SCH ×2 (09:34→18:22)
[2021-07-17] MEDS: CAPTOPRIL 25 MG TABLET PO SCH ×3 (09:34→22:27)
[2021-07-17] MEDS: FAMOTIDINE 20 MG TABLET PO SCH (09:35)
[2021-07-17] MEDS: ISOSORBIDE MONONITRATE ER 30 MG TABLET PO SCH (09:35)
[2021-07-17 13:56] VITALS: BP 138/79
[2021-07-17 18:30] VITALS: BP 138/75
[2021-07-17] MEDS ORDERED: POLYETHYLENE GLYCOL 17 GM PACKET PO PRN (19:00)
[2021-07-17 19:24] VITALS: BP 125/70
[2021-07-18 00:14] VITALS: BP 125/70
[2021-07-18] MEDS: PANTOPRAZOLE 40MG TABLET PO SCH (05:50)
[2021-07-18] MEDS: CALCIUM CARBONATE 500 MG TAB.CHEW PO PRN (06:04)
[2021-07-18] MEDS: FERROUS GLUCONATE 324 MG TABLET PO SCH ×2 (08:00→16:21)
[2021-07-18 08:06] LABS: ALBUMIN 2.3 g/dL (3.4-5.0); ANION GAP 10 mmol/L (5-15); CALCIUM 8.6 mg/dL (8.5-10.1); CHLORIDE 97 mmol/L (98-107)
[2021-07-18 08:07] LABS: BASOPHILS % (AUTO) 0 % (0-1); EOSINOPHILS % (AUTO) 1 % (1-7); LYMPHOCYTES % (AUTO) 4 % (22-44); MEAN CORPUSCULAR HGB CONC 32.1 g/dL (32.4-35.8); MEAN PLATELET VOLUME 7.9 fL (7.4-10.4); MONOCYTES % (AUTO) 6 % (2-9); NEUTROPHILS % (AUTO) 89 % (42-75); PLATELET COUNT 152 x10^3/uL (130-400); RED BLOOD COUNT 2.61 x10^6/uL (3.82-5.3); RED CELL DISTRIBUTION WIDTH 23.1 % (9.6-15.2)
[2021-07-18 08:27] LABS: ALANINE AMINOTRANSFERASE 18 U/L (12-78); ALKALINE PHOSPHATASE 69 U/L (45-117); BILIRUBIN,TOTAL 0.4 mg/dL (0.2-1.0); CREATININE 4.26 mg/dL (0.55-1.02); TOTAL PROTEIN 5.5 g/dL (6.4-8.2)
[2021-07-18] MEDS: METOLAZONE 2.5 MG TABLET PO SCH (12:11)
[2021-07-18] MEDS: FAMOTIDINE 20 MG TABLET PO SCH (12:12)
[2021-07-18] MEDS: SENNA/DOCUSATE TABLET PO SCH (12:12)
[2021-07-18] MEDS: CAPTOPRIL 25 MG TABLET PO SCH ×3 (12:12→21:28)
[2021-07-18] MEDS: ISOSORBIDE MONONITRATE ER 30 MG TABLET PO SCH (12:13)
[2021-07-18] MEDS: FUROSEMIDE 80 MG TABLET PO SCH ×2 (12:13→21:28)
[2021-07-18] MEDS: OXYcodone IR 5MG TABLET PO PRN ×2 (12:20→21:28)
[2021-07-18 14:27] VITALS: BP 109/56
[2021-07-18] MEDS: BISACODYL 10 MG SUPP PR PRN (16:37)
[2021-07-18 20:56] VITALS: BP 126/67
[2021-07-18] MEDS: MELATONIN 5 MG TABLET PO PRN (21:29)
[2021-07-19 00:27] VITALS: BP 123/58
[2021-07-19] MEDS: ACETAMINOPHEN 325 MG TABLET PO PRN (01:57)
[2021-07-19] MEDS: CALCIUM CARBONATE 500 MG TAB.CHEW PO PRN ×2 (05:10→17:32)
[2021-07-19] MEDS: PANTOPRAZOLE 40MG TABLET PO SCH (05:24)
[2021-07-19 05:26] LABS: BASOPHILS % (AUTO) 0 % (0-1); EOSINOPHILS % (AUTO) 1 % (1-7); LYMPHOCYTES % (AUTO) 5 % (22-44); MEAN CORPUSCULAR HGB CONC 32.1 g/dL (32.4-35.8); MEAN PLATELET VOLUME 8.3 fL (7.4-10.4); MONOCYTES % (AUTO) 7 % (2-9); NEUTROPHILS % (AUTO) 88 % (42-75); PLATELET COUNT 173 x10^3/uL (130-400); RED BLOOD COUNT 2.53 x10^6/uL (3.82-5.3); RED CELL DISTRIBUTION WIDTH 22.5 % (9.6-15.2)
[2021-07-19 05:35] LABS: ALBUMIN 2.1 g/dL (3.4-5.0); CHLORIDE 95 mmol/L (98-107)
[2021-07-19 05:39] LABS: ANION GAP 8 mmol/L (5-15); CALCIUM 8.4 mg/dL (8.5-10.1); CREATININE 3.46 mg/dL (0.55-1.02)
[2021-07-19 07:49] VITALS: BP 123/71
[2021-07-19] MEDS: FERROUS GLUCONATE 324 MG TABLET PO SCH ×2 (08:00→17:34)
[2021-07-19] MEDS: CAPTOPRIL 25 MG TABLET PO SCH ×3 (09:07→20:19)
[2021-07-19] MEDS: SENNA/DOCUSATE TABLET PO SCH (09:07)
[2021-07-19] MEDS: ISOSORBIDE MONONITRATE ER 30 MG TABLET PO SCH (09:08)
[2021-07-19] MEDS: FUROSEMIDE 80 MG TABLET PO SCH (09:08)
[2021-07-19] MEDS: FAMOTIDINE 20 MG TABLET PO SCH (09:08)
[2021-07-19] MEDS: METOLAZONE 2.5 MG TABLET PO SCH (09:08)
[2021-07-19] MEDS: FUROSEMIDE 40 MG/4 ML IV SCH ×2 (11:37→20:24)
[2021-07-19 13:25] VITALS: BP 115/59
[2021-07-19] MEDS: OXYcodone IR 5MG TABLET PO PRN (17:36)
[2021-07-19 18:43] VITALS: BP 102/59
[2021-07-20 01:23] VITALS: BP 111/63
[2021-07-20] MEDS: OXYcodone IR 5MG TABLET PO PRN (01:42)
[2021-07-20 04:31] LABS: BASOPHILS % (AUTO) 0 % (0-1); EOSINOPHILS % (AUTO) 1 % (1-7); LYMPHOCYTES % (AUTO) 7 % (22-44); MEAN CORPUSCULAR HEMOGLOBIN 28.8 pg (27.0-34.8); MEAN CORPUSCULAR HGB CONC 31.7 g/dL (32.4-35.8); MEAN PLATELET VOLUME 7.9 fL (7.4-10.4); MONOCYTES % (AUTO) 7 % (2-9); NEUTROPHILS % (AUTO) 85 % (42-75); PLATELET COUNT 215 x10^3/uL (130-400); RED BLOOD COUNT 2.52 x10^6/uL (3.82-5.3); RED CELL DISTRIBUTION WIDTH 22.6 % (9.6-15.2)
[2021-07-20 04:39] LABS: ALBUMIN 2.3 g/dL (3.4-5.0); ANION GAP 9 mmol/L (5-15); CALCIUM 8.3 mg/dL (8.5-10.1); CHLORIDE 97 mmol/L (98-107); CREATININE 2.58 mg/dL (0.55-1.02)
[2021-07-20] MEDS: CALCIUM CARBONATE 500 MG TAB.CHEW PO PRN (05:59)
[2021-07-20 07:56] VITALS: BP 131/65
[2021-07-20] MEDS: PANTOPRAZOLE 40 MG IV IVPush SCH (09:05)
[2021-07-20] MEDS: FUROSEMIDE 40 MG/4 ML IV SCH (09:06)
[2021-07-20] MEDS: METOLAZONE 2.5 MG TABLET PO SCH ×3 (11:06→23:00)
[2021-07-20] MEDS: SENNA/DOCUSATE TABLET PO SCH (11:07)
[2021-07-20] MEDS: CAPTOPRIL 25 MG TABLET PO SCH ×2 (11:07→16:00)
[2021-07-20] MEDS: ISOSORBIDE MONONITRATE ER 30 MG TABLET PO SCH (11:07)
[2021-07-20] MEDS: FERROUS GLUCONATE 324 MG TABLET PO SCH (11:08)
[2021-07-20 12:04] VITALS: BP 114/61
[2021-07-20] MEDS: DIPHENHYDRAMINE 50 MG/ML, 1ML IVPush PRN (16:07)
[2021-07-20 20:28] VITALS: BP 116/62
[2021-07-21 01:39] VITALS: BP 138/67
[2021-07-21] MEDS: OXYcodone IR 5MG TABLET PO PRN ×2 (01:43→23:38)
[2021-07-21] MEDS: FUROSEMIDE 40 MG/4 ML IV SCH ×2 (02:08→14:52)
[2021-07-21] MEDS: CALCIUM CARBONATE 500 MG TAB.CHEW PO PRN (03:37)
[2021-07-21 05:28] LABS: ALBUMIN 2.3 g/dL (3.4-5.0); ANION GAP 6 mmol/L (5-15); CALCIUM 8.5 mg/dL (8.5-10.1); CHLORIDE 95 mmol/L (98-107)
[2021-07-21 05:29] LABS: CREATININE 1.59 mg/dL (0.55-1.02)
[2021-07-21 05:31] LABS: BASOPHILS % (AUTO) 0 % (0-1); EOSINOPHILS % (AUTO) 1 % (1-7); LYMPHOCYTES % (AUTO) 6 % (22-44); MEAN CORPUSCULAR HEMOGLOBIN 28.9 pg (27.0-34.8); MEAN CORPUSCULAR HGB CONC 32.1 g/dL (32.4-35.8); MEAN PLATELET VOLUME 7.4 fL (7.4-10.4); MONOCYTES % (AUTO) 6 % (2-9); NEUTROPHILS % (AUTO) 87 % (42-75); PLATELET COUNT 239 x10^3/uL (130-400); RED BLOOD COUNT 2.63 x10^6/uL (3.82-5.3); RED CELL DISTRIBUTION WIDTH 21.7 % (9.6-15.2)
[2021-07-21] MEDS: FERROUS GLUCONATE 324 MG TABLET PO SCH ×3 (08:00→17:00)
[2021-07-21] MEDS: METOLAZONE 2.5 MG TABLET PO SCH ×2 (11:31→23:39)
[2021-07-21] MEDS: ISOSORBIDE MONONITRATE ER 30 MG TABLET PO SCH (11:32)
[2021-07-21] MEDS: SENNA/DOCUSATE TABLET PO SCH (11:32)
[2021-07-21] MEDS: PANTOPRAZOLE 40 MG IV IVPush SCH (11:33)
[2021-07-21] MEDS: CAPTOPRIL 25 MG TABLET PO SCH ×4 (11:33→23:39)
[2021-07-21 12:09] VITALS: BP 138/74
[2021-07-21 23:32] VITALS: BP 145/76
[2021-07-21] MEDS: DIPHENHYDRAMINE 50 MG/ML, 1ML IVPush PRN (23:40)
[2021-07-22] MEDS: FUROSEMIDE 40 MG/4 ML IV SCH ×3 (00:02→21:34)
[2021-07-22] MEDS: POTASSIUM CHLORIDE 20 MEQ PACKET PO SCH ×2 (00:03→00:32)
[2021-07-22] MEDS: POTASSIUM CHLORIDE 20 MEQ TAB.ER.PRT PO SCH ×2 (00:43→21:34)
[2021-07-22 01:33] VITALS: BP 145/73
[2021-07-22 07:36] LABS: BASOPHILS % (AUTO) 1 % (0-1); EOSINOPHILS % (AUTO) 1 % (1-7); LYMPHOCYTES % (AUTO) 6 % (22-44); MEAN CORPUSCULAR HEMOGLOBIN 28.6 pg (27.0-34.8); MEAN CORPUSCULAR HGB CONC 31.6 g/dL (32.4-35.8); MEAN PLATELET VOLUME 7.3 fL (7.4-10.4); MONOCYTES % (AUTO) 6 % (2-9); NEUTROPHILS % (AUTO) 87 % (42-75); PLATELET COUNT 258 x10^3/uL (130-400); RED BLOOD COUNT 2.87 x10^6/uL (3.82-5.3); RED CELL DISTRIBUTION WIDTH 21.8 % (9.6-15.2)
[2021-07-22 07:48] LABS: ALBUMIN 2.3 g/dL (3.4-5.0); ANION GAP 5 mmol/L (5-15); CALCIUM 8.4 mg/dL (8.5-10.1); CHLORIDE 97 mmol/L (98-107); CREATININE 1.66 mg/dL (0.55-1.02)
[2021-07-22] MEDS: FERROUS GLUCONATE 324 MG TABLET PO SCH ×2 (08:00→17:00)
[2021-07-22 08:23] VITALS: BP 114/69
[2021-07-22 08:59] LABS: QUANTIFERON TB Ag1-NIL 0 (0.000-0.000)
[2021-07-22] MEDS: METOLAZONE 2.5 MG TABLET PO SCH ×2 (09:00→21:34)
[2021-07-22] MEDS: CAPTOPRIL 25 MG TABLET PO SCH ×3 (09:00→21:33)
[2021-07-22] MEDS: SENNA/DOCUSATE TABLET PO SCH (09:00)
[2021-07-22] MEDS: PANTOPRAZOLE 40 MG IV IVPush SCH (10:36)
[2021-07-22 10:51] VITALS: BP 127/68
[2021-07-22] MEDS ORDERED: LIDOCAINE 1%, 20ML ONE (14:10)
[2021-07-22] MEDS ORDERED: FENTANYL PF 100 MCG/2ML ONE (14:28)
[2021-07-22] MEDS ORDERED: FLUMAZENIL 0.1 MG/1 ML, 5ML ONE (14:28)
[2021-07-22] MEDS ORDERED: NALOXONE 1 MG/ML, 2ML ONE (14:28)
[2021-07-22] MEDS ORDERED: MIDAZOLAM 1 MG/ML, 5ML ONE ×2 (14:28)
[2021-07-22] MEDS ORDERED: CEFAZOLIN PMX 1GM/50ML 50 ML ONE (14:44)
[2021-07-22 19:59] VITALS: BP 113/62
[2021-07-22] MEDS: MELATONIN 5 MG TABLET PO PRN (21:34)
[2021-07-22] MEDS: OXYcodone IR 5MG TABLET PO PRN (21:34)
[2021-07-22] MEDS: CALCIUM CARBONATE 500 MG TAB.CHEW PO PRN (21:37)
[2021-07-23] VITALS (8 sets, daily range): BP systolic 80–129; BP diastolic 42–88
[2021-07-23] MEDS ORDERED: SODIUM CHLORIDE 0.9%, 500ML IVBOLUS ONE (01:00)
[2021-07-23] MEDS: DIPHENHYDRAMINE 50 MG/ML, 1ML IVPush PRN ×2 (04:56→20:33)
[2021-07-23] MEDS: OXYcodone IR 5MG TABLET PO PRN ×2 (04:57→20:33)
[2021-07-23] MEDS: PANTOPRAZOLE 40MG TABLET PO SCH (04:57)
[2021-07-23 05:20] LABS: ALBUMIN 2.5 g/dL (3.4-5.0); ANION GAP 7 mmol/L (5-15); CALCIUM 8.3 mg/dL (8.5-10.1); CHLORIDE 98 mmol/L (98-107); CREATININE 1.64 mg/dL (0.55-1.02)
[2021-07-23] MEDS: FERROUS GLUCONATE 324 MG TABLET PO SCH ×2 (08:00→16:43)
[2021-07-23] MEDS: CALCIUM CARBONATE 500 MG TAB.CHEW PO PRN (08:24)
[2021-07-23] MEDS: CAPTOPRIL 25 MG TABLET PO SCH ×4 (09:00→20:30)
[2021-07-23] MEDS: FUROSEMIDE 40 MG/4 ML IV SCH ×2 (09:40→20:29)
[2021-07-23] MEDS: ONDANSETRON 2MG/ML, 2ML IVPush PRN ×2 (09:43→16:40)
[2021-07-23] MEDS: METOLAZONE 2.5 MG TABLET PO SCH ×2 (12:31→20:29)
[2021-07-23] MEDS: SENNA/DOCUSATE TABLET PO SCH (12:32)
[2021-07-24 01:28] VITALS: BP 103/60
[2021-07-24] MEDS: DIPHENHYDRAMINE 50 MG/ML, 1ML IVPush PRN (02:44)
[2021-07-24] MEDS: OXYcodone IR 5MG TABLET PO PRN ×3 (02:44→21:44)
[2021-07-24] MEDS: PANTOPRAZOLE 40MG TABLET PO SCH (06:29)
[2021-07-24 06:57] VITALS: BP 107/64
[2021-07-24] MEDS: FERROUS GLUCONATE 324 MG TABLET PO SCH ×2 (08:00→16:24)
[2021-07-24] MEDS: CAPTOPRIL 25 MG TABLET PO SCH ×3 (09:00→21:00)
[2021-07-24] MEDS: FUROSEMIDE 40 MG/4 ML IV SCH (09:21)
[2021-07-24] MEDS: SENNA/DOCUSATE TABLET PO SCH (09:22)
[2021-07-24] MEDS: METOLAZONE 2.5 MG TABLET PO SCH (09:23)
[2021-07-24] MEDS ORDERED: POTASSIUM PHOSPHATE 44 MEQ in SODIUM CHLORIDE 0.9% 500 ML IV ONE (10:30)
[2021-07-24 15:54] VITALS: BP 104/59
[2021-07-24] MEDS ORDERED: DIPHENHYDRAMINE 25 MG CAPSULE PO ONE (16:00)
[2021-07-24 20:45] VITALS: BP 95/55
[2021-07-24] MEDS ORDERED: POTASSIUM CHLORIDE 20 MEQ TAB.ER.PRT PO ONE (22:30)
[2021-07-25 00:43] VITALS: BP 114/66
[2021-07-25] MEDS: OXYcodone IR 5MG TABLET PO PRN ×3 (05:57→22:18)
[2021-07-25] MEDS: PANTOPRAZOLE 40MG TABLET PO SCH (05:57)
[2021-07-25 07:00] VITALS: BP 148/75
[2021-07-25] MEDS: FERROUS GLUCONATE 324 MG TABLET PO SCH ×2 (08:00→17:00)
[2021-07-25] MEDS: SENNA/DOCUSATE TABLET PO SCH (08:12)
[2021-07-25] MEDS: CAPTOPRIL 25 MG TABLET PO SCH ×3 (08:14→22:17)
[2021-07-25] MEDS: METOLAZONE 5 MG TABLET PO SCH (08:14)
[2021-07-25] MEDS: FUROSEMIDE 80 MG TABLET PO SCH (08:15)
[2021-07-25] MEDS ORDERED: ONDANSETRON ODT 4 MG PO PRN (08:30)
[2021-07-25] MEDS ORDERED: DIPHENHYDRAMINE 25 MG CAPSULE PO PRN ×2 (11:30→22:00)
[2021-07-25 11:48] LABS: ALBUMIN 2.9 g/dL (3.4-5.0); CALCIUM 8.9 mg/dL (8.5-10.1)
[2021-07-25 12:19] LABS: ANION GAP 10 mmol/L (5-15); CHLORIDE 95 mmol/L (98-107); CREATININE 2.77 mg/dL (0.55-1.02)
[2021-07-25 14:04] VITALS: BP 142/70
[2021-07-25] MEDS: CALCIUM CARBONATE 500 MG TAB.CHEW PO PRN ×2 (17:54→22:18)
[2021-07-25 19:20] VITALS: BP 120/68
[2021-07-26 01:01] VITALS: BP 120/70
[2021-07-26 07:23] VITALS: BP 124/68
[2021-07-26] MEDS: METOLAZONE 5 MG TABLET PO SCH (07:42)
[2021-07-26] MEDS: FUROSEMIDE 80 MG TABLET PO SCH (07:42)
[2021-07-26] MEDS: FERROUS GLUCONATE 324 MG TABLET PO SCH ×2 (07:42→17:00)
[2021-07-26] MEDS: OXYcodone IR 5MG TABLET PO PRN ×2 (07:43→17:58)
[2021-07-26] MEDS: SENNA/DOCUSATE TABLET PO SCH (07:44)
[2021-07-26] MEDS: PANTOPRAZOLE 40MG TABLET PO SCH (07:44)
[2021-07-26] MEDS: CAPTOPRIL 25 MG TABLET PO SCH ×2 (07:44→16:00)
[2021-07-26] MEDS ORDERED: FURO80TA3 PO ×2 (09:55)
[2021-07-26] MEDS ORDERED: PANT40TA6 PO (09:55)
[2021-07-26] MEDS ORDERED: DIPH25CA26 PO (09:55)
[2021-07-26] MEDS ORDERED: ONDA4TAB13 PO (09:55)
[2021-07-26] MEDS ORDERED: HYDR-826 PO (09:55)
[2021-07-26] MEDS ORDERED: POLY17PO5 PO (09:55)
[2021-07-26] MEDS ORDERED: SENN-211 PO (09:55)
[2021-07-26] MEDS ORDERED: FERR324T23 PO (09:55)
[2021-07-26] MEDS ORDERED: CAPT25TA3 PO (09:55)
[2021-07-26] MEDS ORDERED: METO5TAB5 PO ×2 (09:55)
[2021-07-26] MEDS ORDERED: MYCO500T3 PO (09:55)
[2021-07-26 17:46] VITALS: BP 104/63
[2021-08-12] MEDS ORDERED: PRED20TA PO (11:27)
== END 2021-07-26 18:28 | disposition home or self-care (01) | DRG 673 ==
LOC: ED 18:11 → EDIP 19:00 → 5SO 19:19 → 3N 07-07 14:35
PROVIDERS: ADMIT Internal Medicine; ATTEND Internal Medicine
PROC: 0W3P8ZZ Control Bleeding in Gastrointestinal Tract, Via Natural or Artificial Opening Endoscopic (ICD-10-PCS; 2021-07-05)
PROC: 0TB13ZX Excision of Left Kidney, Percutaneous Approach, Diagnostic (ICD-10-PCS; principal; 2021-07-12)
PROC: 02HV33Z Insertion of Infusion Device into Superior Vena Cava, Percutaneous Approach (ICD-10-PCS; 2021-07-18)
PROC: B5181ZA Fluoroscopy of Superior Vena Cava using Low Osmolar Contrast, Guidance (ICD-10-PCS; 2021-07-18)
PROC: 5A1D70Z Performance of Urinary Filtration, Intermittent, Less than 6 Hours Per Day (ICD-10-PCS; 2021-07-18)
PROC: 5A1D70Z Performance of Urinary Filtration, Intermittent, Less than 6 Hours Per Day (ICD-10-PCS; 2021-07-19)
PROC: 5A1D70Z Performance of Urinary Filtration, Intermittent, Less than 6 Hours Per Day (ICD-10-PCS; 2021-07-20)
PROC: 5A1D70Z Performance of Urinary Filtration, Intermittent, Less than 6 Hours Per Day (ICD-10-PCS; 2021-07-21)
PROC: 0JH63XZ Insertion of Tunneled Vascular Access Device into Chest Subcutaneous Tissue and Fascia, Percutaneous Approach (ICD-10-PCS; 2021-07-22)
PROC: 02HV33Z Insertion of Infusion Device into Superior Vena Cava, Percutaneous Approach (ICD-10-PCS; 2021-07-22)
PROC: B5181ZA Fluoroscopy of Superior Vena Cava using Low Osmolar Contrast, Guidance (ICD-10-PCS; 2021-07-22)
PROC: B548ZZA Ultrasonography of Superior Vena Cava, Guidance (ICD-10-PCS; 2021-07-22)
PROC: 02PY33Z Removal of Infusion Device from Great Vessel, Percutaneous Approach (ICD-10-PCS; 2021-07-22)
PROC: 5A1D70Z Performance of Urinary Filtration, Intermittent, Less than 6 Hours Per Day (ICD-10-PCS; 2021-07-22)
PROC: 5A1D70Z Performance of Urinary Filtration, Intermittent, Less than 6 Hours Per Day (ICD-10-PCS; 2021-07-23)
PROC: 5A1D70Z Performance of Urinary Filtration, Intermittent, Less than 6 Hours Per Day (ICD-10-PCS; 2021-07-24)
PROC: 5A1D70Z Performance of Urinary Filtration, Intermittent, Less than 6 Hours Per Day (ICD-10-PCS; 2021-07-25)
DX: N17.0 Acute kidney failure with tubular necrosis (principal); K31.811 Angiodysplasia of stomach and duodenum with bleeding; J96.00 Acute respiratory failure, unspecified whether with hypoxia or hypercapnia; M31.1 Thrombotic microangiopathy; D84.9 Immunodeficiency, unspecified; E87.1 Hypo-osmolality and hyponatremia; I50.30 Unspecified diastolic (congestive) heart failure; D64.9 Anemia, unspecified; E61.1 Iron deficiency; E87.6 Hypokalemia; G89.29 Other chronic pain; I11.0 Hypertensive heart disease with heart failure; K22.4 Dyskinesia of esophagus; K29.70 Gastritis, unspecified, without bleeding; K59.00 Constipation, unspecified; L50.9 Urticaria, unspecified; M32.9 Systemic lupus erythematosus, unspecified; M34.1 CR(E)ST syndrome; Z20.822 Contact with and (suspected) exposure to COVID-19; Z79.1 Long term (current) use of non-steroidal anti-inflammatories (NSAID); Z80.0 Family history of malignant neoplasm of digestive organs; Z82.49 Family history of ischemic heart disease and other diseases of the circulatory system; Z86.16 Personal history of COVID-19; Z87.891 Personal history of nicotine dependence; Z99.2 Dependence on renal dialysis; Z88.8 Allergy status to other drugs, medicaments and biological substances
CPT/HCPCS: 36415; 73130; 74018; 84145; 96374; 96375; 99285; J3490; 36556; 36558; 50200; 71045; 71046; 71250; 74176; 76770; 76937; 77012; 80048; 80053; 80069; 81001; 82436; 82550; 82728; 83520; 83540; 83550; 83735; 83880; 83930; 83935; 84100; 84133; 84300; 84484; 84550; 85014; 85018; 85025; 85610; 85651; 86038; 86039; 86140; 86160; 86162; 86200; 86225; 86235; 86256; 86480; 86704; 86706; 87340; 87635; 88300; 88305; 88313; 88346; 88348; 88350; 90935; 93005; 93306; 93356; 99156; 99157; G0378; J0295; J0690; J1756; J1940; J2250; J2405; J2704; J3010; J3480; Q0162; C1750; C1751; C9113; J0360; J1200; J1642; J2270; J2310; J2920; J7030; J7040; J7512; J7517; Q0163; Q0177

== ENCOUNTER 2021-08-03 17:24 | Inpatient (IN) | payer OTHER ==
[~2021-08-03] VITALS: Ht 154.9 cm; Wt 54.9 kg
[~2021-08-03 17:24] MED LIST: CAPT25TA3 PO; DIPH25CA26 PO; FERR324T23 PO; FURO80TA3 PO; HYDR-826 PO; METO5TAB5 PO; MYCO500T3 PO; ONDA4TAB13 PO; PANT40TA6 PO; POLY17PO5 PO; SENN-211 PO; TORS20TA2 PO; TRAM50TA2 PO
--- NOTE | 2021-08-03 18:35 | NUR ---
TO ROOM FROM LOBBY.
[2021-08-03] MEDS ORDERED: CEFTRIAXONE 1,000 MG in DEXTROSE 5% 50 ML IVPB ONE (19:00)
[2021-08-03] MEDS ORDERED: AZITHROMYCIN 500 MG in SODIUM CHLORIDE 0.9% 250 ML IVPB ONE (19:00)
[2021-08-03] MEDS ORDERED: VANCOMYCIN 1,500 MG in SODIUM CHLORIDE 0.9% 250 ML IV ONE (19:00)
[2021-08-03] MEDS ORDERED: PROMETHAZINE 25 MG/ML, 1ML IM ONE (19:00)
[2021-08-03] MEDS ORDERED: VANCOMYCIN PER PHARMACY MC ONE (19:00)
--- NOTE | 2021-08-03 19:04 | NUR ---
PT LIMBS SWOLLEN. SKIN TAUT. PT REPORTS ITCHING AND PAIN FROM BEING SWOLLEN
--- NOTE | 2021-08-03 19:04 | NUR ---
FIRST CONTACT WITH PT. CARE ASSSUMED AT THIS TIME. PT REPORTS INCREASED SOB SINCE THURSDAY. PT HAS MISSED X2 DIALYSIS APPOINTMENTS. PT REPORTS N/V/D AND DIZZINESS. PT RECENTLY HOSPITALIZED FOR THE SAME SYMPTOMS A WEEK AGO. PT AAOX4. NADN. CONNECTED TO VITAL MACHINE MONITOR.
--- NOTE | 2021-08-03 19:24 | NUR ---
UNSUCCESSFUL ATTEMPT FOR IV. JONO PARMAR USING ULTRASOUND FOR AN IV AT THIS TIME.
[2021-08-03] MEDS ORDERED: PROMETHAZINE 25 MG/ML, 1ML ONE (19:27)
[2021-08-03 19:28] LABS: ALANINE AMINOTRANSFERASE 15 U/L (12-78); ALBUMIN 2.6 g/dL (3.4-5.0); ANION GAP 12 mmol/L (5-15); CALCIUM 9.3 mg/dL (8.5-10.1); CHLORIDE 89 mmol/L (98-107)
[2021-08-03 19:34] LABS: BASOPHILS % (AUTO) 0 % (0-1); EOSINOPHILS % (AUTO) 0 % (1-7); LYMPHOCYTES % (AUTO) 6 % (22-44); MEAN CORPUSCULAR HGB CONC 32.2 g/dL (32.4-35.8); MEAN PLATELET VOLUME 6.3 fL (7.4-10.4); MONOCYTES % (AUTO) 7 % (2-9); NEUTROPHILS % (AUTO) 86 % (42-75); PLATELET COUNT 504 x10^3/uL (130-400); RED CELL DISTRIBUTION WIDTH 19.4 % (9.6-15.2)
[2021-08-03 19:46] LABS: ALKALINE PHOSPHATASE 86 U/L (45-117); BILIRUBIN,TOTAL 0.4 mg/dL (0.2-1.0); CREATININE 5.77 mg/dL (0.55-1.02); TOTAL PROTEIN 6.4 g/dL (6.4-8.2)
[2021-08-03 19:53] LABS: ANISOCYTOSIS 1+; HYPOCHROMIA 2+; POLYCHROMASIA 1+; STOMATOCYTES 1+
[2021-08-03 19:54] LABS: <PLATELET ESTIMATE> INCREASED; SMALL PLATELETS 1+
--- NOTE | 2021-08-03 20:25 | NUR ---
PT RESTING COMFORTABLY WAITING FOR ADMISSION ORDERS. WILL CONTINUE TO MONITOR.
[2021-08-03] MEDS ORDERED: ASPIRIN 81 MG TABLET CHEW ONE ×2 (20:29→20:30)
[2021-08-03] MEDS ORDERED: DIPHENHYDRAMINE 50 MG/ML, 1ML ONE (20:29)
[2021-08-03] MEDS ORDERED: ASPIRIN 81 MG TABLET CHEW PO ONE (20:30)
[2021-08-03 20:31] LABS: MICROSCOPIC AUTO
[2021-08-03] MEDS ORDERED: DIPHENHYDRAMINE 50 MG/ML, 1ML IVPush ONE (21:00)
--- NOTE | 2021-08-03 21:39 | NUR ---
ASSISTED PT TO BEDSIDE CAMODE AND BACK. PT DESATS WHEN STANDING AND MOVING POSTIONS.
--- NOTE | 2021-08-03 22:34 | NUR ---
NOTIFED MD OF PT BP. REPORTS HE WILL SPEAK WITH HOSPITALIST.
[2021-08-03] MEDS ORDERED: VANCOMYCIN PER PHARMACY MC PRN (23:30)
[2021-08-03] MEDS ORDERED: PHARMACY MAY ADJ FOR RENAL FX MC PRN (23:30)
[2021-08-03] MEDS ORDERED: BISACODYL 10 MG SUPP PR PRN (23:30)
[2021-08-04] MEDS ORDERED: ONDANSETRON 2MG/ML, 2ML ONE ×2 (00:42→13:16)
[2021-08-04] MEDS ORDERED: PHARMACOKINETIC CONSULTATION MC ONE (02:00)
[2021-08-04] MEDS ORDERED: PHARMACOKINETIC MONITORING MC PRN (02:00)
--- NOTE | 2021-08-04 03:36 | NUR ---
ATTEMPTED TO CALL HOSPITALIST FOR MEDICATION VERIFICATION. WENT TO VOICEMAIL. WILL CONTINUE TO TRY TO REACH HIM. PT SLEEPING IN NAD.
--- NOTE | 2021-08-04 04:45 | NUR ---
ASSISTED PT TO BED SIDE CAMODE. PT MADE A BM AND ASSISTED BACK TO BED. TOLERATED WELL.
[2021-08-04] MEDS ORDERED: HEPARIN 5,000 UNITS/ML, 1ML ONE ×2 (06:06→13:16)
[2021-08-04] MEDS: HEPARIN 5,000 UNITS/ML, 1ML SQ SCH ×3 (06:19→22:11)
[2021-08-04] MEDS: PIPERACILLIN/TAZO 3.375 GM in DEXTROSE 5% 50 ML IV SCH ×3 (06:19→20:00)
--- NOTE | 2021-08-04 06:20 | NUR ---
LAB AT BEDSIDE.
[2021-08-04 06:45] LABS: BASOPHILS % (AUTO) 1 % (0-1); EOSINOPHILS % (AUTO) 0 % (1-7); LYMPHOCYTES % (AUTO) 6 % (22-44); MEAN CORPUSCULAR HEMOGLOBIN 29.4 pg (27.0-34.8); MEAN CORPUSCULAR HGB CONC 32.5 g/dL (32.4-35.8); MEAN PLATELET VOLUME 6.6 fL (7.4-10.4); MONOCYTES % (AUTO) 8 % (2-9); NEUTROPHILS % (AUTO) 85 % (42-75); PLATELET COUNT 473 x10^3/uL (130-400); RED BLOOD COUNT 2.61 x10^6/uL (3.82-5.3); RED CELL DISTRIBUTION WIDTH 19.1 % (9.6-15.2)
--- NOTE | 2021-08-04 06:50 | NUR ---
REPORT FROM NASH RN WITH ASSESSMENT PATIENT WITH MODERATE TO SEVER WOB (RR 20-30), PUSED LIP ON NASAL CANNULA. CHANGED TO OXYMASK AT 9LPM PATIENT UPDATED ON POC
[2021-08-04 06:55] LABS: ANION GAP 17 mmol/L (5-15); CALCIUM 9.2 mg/dL (8.5-10.1); CHLORIDE 91 mmol/L (98-107); CREATININE 6.26 mg/dL (0.55-1.02)
--- NOTE | 2021-08-04 06:58 | NUR ---
CARE TRANSFERED. REPORT GIVEN TO JONO MERRITT
--- NOTE | 2021-08-04 08:11 | NUR ---
Voicemail left for Dr. Villagomez in r/t dialysis, patient requesting pain medicine (continue home tramadol) Will continue to monitor
[2021-08-04] MEDS ORDERED: PROMETHAZINE 25 MG/ML, 1ML ONE (11:00)
[2021-08-04] MEDS ORDERED: PROMETHAZINE 25 MG/ML, 1ML IM PRN (11:00)
--- NOTE | 2021-08-04 11:29 | NUR ---
PATIENT WITH 9TH DIARRHEA EPISODE , NOW VOMITING. DR. BETANCOURT MADE AWARE. ORDER RECEIVED FOR PHENERGAN AND CDIFF SEND OFF. BOTH ORDERS COMPLETED
[2021-08-04] MEDS ORDERED: DIPHENOXYLATE/ATROPINE TABLET PO PRN (11:30)
[2021-08-04 11:51] LABS: CLOSTRIDIUM DIFFICILE ANTIGEN NEGATIVE; CLOSTRIDIUM DIFFICILE TOXIN NEGATIVE (Negative)
--- NOTE | 2021-08-04 12:25 | NUR ---
DIALYSIS CALLED. THROUGHPUT RN CONSULTED TO ASSURE HD WOULD NOT BE INTERRUPTED BY BED AVAILABILITY. THROUGHPUT ESTIMATES BED WILL BE AVAILABLE IN 1 HOUR. HD CALLED. PLAN TO DIALYZE UP STAIRS
[2021-08-04] MEDS ORDERED: LOPERAMIDE 2 MG CAPSULE ONE (12:41)
[2021-08-04] MEDS: LOPERAMIDE 2 MG CAPSULE PO PRN (12:45)
[2021-08-04] MEDS: ONDANSETRON 2MG/ML, 2ML IVPush PRN ×2 (13:21→20:47)
[2021-08-04 14:32] VITALS: BP 189/102
[2021-08-04 18:12] VITALS: BP 158/88
[2021-08-04] MEDS: DIPHENHYDRAMINE 25 MG CAPSULE PO PRN (22:10)
[2021-08-05 02:00] VITALS: BP 151/84
[2021-08-05] MEDS: PIPERACILLIN/TAZO 3.375 GM in DEXTROSE 5% 50 ML IV SCH ×2 (02:09→10:00)
[2021-08-05] MEDS: ONDANSETRON 2MG/ML, 2ML IVPush PRN (02:54)
[2021-08-05] MEDS: DIPHENHYDRAMINE 25 MG CAPSULE PO PRN ×2 (04:55→22:53)
[2021-08-05] MEDS: HEPARIN 5,000 UNITS/ML, 1ML SQ SCH ×3 (05:04→22:00)
[2021-08-05] MEDS: FUROSEMIDE 80 MG TABLET PO SCH (10:00)
[2021-08-05] MEDS: LOPERAMIDE 2 MG CAPSULE PO PRN ×2 (10:01→19:27)
[2021-08-05 10:04] VITALS: BP 167/93
[2021-08-05] MEDS: DIPHENHYDRAMINE/ZINC CRM 2%, 30GM TP SCH ×3 (13:17→21:00)
[2021-08-05 15:48] LABS: VANCOMYCIN,RANDOM 20.4 mcg/mL
[2021-08-05 17:16] VITALS: BP 168/86
[2021-08-05] MEDS: VANCOMYCIN 500 MG in SODIUM CHLORIDE 0.9% 100 ML IV SCH (18:39)
[2021-08-06] MEDS: VANCOMYCIN 500 MG in SODIUM CHLORIDE 0.9% 100 ML IV SCH (00:25)
[2021-08-06] MEDS: PIPERACILLIN/TAZO 2.25 GM in DEXTROSE 5% 50 ML IVPB SCH ×2 (01:45→10:12)
[2021-08-06 02:10] VITALS: BP 163/82
[2021-08-06] MEDS: LOPERAMIDE 2 MG CAPSULE PO PRN ×3 (04:56→21:29)
[2021-08-06] MEDS: HEPARIN 5,000 UNITS/ML, 1ML SQ SCH ×3 (06:00→21:27)
[2021-08-06] MEDS: DIPHENHYDRAMINE/ZINC CRM 2%, 30GM TP SCH ×5 (06:00→19:25)
[2021-08-06 08:15] VITALS: BP 152/86
[2021-08-06] MEDS: DIPHENHYDRAMINE 25 MG CAPSULE PO PRN ×3 (08:16→21:28)
[2021-08-06] MEDS: FUROSEMIDE 80 MG TABLET PO SCH (08:16)
[2021-08-06] MEDS: ONDANSETRON 2MG/ML, 2ML IVPush PRN ×2 (10:12→17:28)
[2021-08-06 14:20] VITALS: BP 107/65
[2021-08-06 20:09] VITALS: BP 174/99
[2021-08-07 00:53] VITALS: BP 173/88
[2021-08-07] MEDS: DIPHENHYDRAMINE 25 MG CAPSULE PO PRN ×3 (05:10→20:45)
[2021-08-07] MEDS: LOPERAMIDE 2 MG CAPSULE PO PRN (05:10)
[2021-08-07] MEDS: ONDANSETRON 2MG/ML, 2ML IVPush PRN ×2 (05:15→15:34)
[2021-08-07 07:10] VITALS: BP 172/90
[2021-08-07] MEDS ORDERED: CHOLECALCIFEROL 5,000u TAB PO SCH (09:00)
[2021-08-07] MEDS: FUROSEMIDE 80 MG TABLET PO SCH (09:24)
[2021-08-07] MEDS: DIPHENHYDRAMINE/ZINC CRM 2%, 30GM TP SCH ×3 (11:00→20:15)
[2021-08-07] MEDS: HEPARIN 5,000 UNITS/ML, 1ML SQ SCH ×2 (11:11→20:15)
[2021-08-07 14:14] LABS: BASOPHILS % (AUTO) 0 % (0-1); EOSINOPHILS % (AUTO) 0 % (1-7); LYMPHOCYTES % (AUTO) 2 % (22-44); MEAN CORPUSCULAR HEMOGLOBIN 28.6 pg (27.0-34.8); MEAN CORPUSCULAR HGB CONC 32.1 g/dL (32.4-35.8); MEAN PLATELET VOLUME 6.5 fL (7.4-10.4); MONOCYTES % (AUTO) 5 % (2-9); NEUTROPHILS % (AUTO) 92 % (42-75); PLATELET COUNT 493 x10^3/uL (130-400); RED BLOOD COUNT 2.92 x10^6/uL (3.82-5.3); RED CELL DISTRIBUTION WIDTH 18.5 % (9.6-15.2)
[2021-08-07 14:27] LABS: ALANINE AMINOTRANSFERASE 16 U/L (12-78); ALBUMIN 2.6 g/dL (3.4-5.0); ANION GAP 11 mmol/L (5-15); CALCIUM 8.7 mg/dL (8.5-10.1); CHLORIDE 94 mmol/L (98-107); CREATININE 1.23 mg/dL (0.55-1.02)
[2021-08-07 14:29] LABS: ALKALINE PHOSPHATASE 108 U/L (45-117); BILIRUBIN,TOTAL 0.6 mg/dL (0.2-1.0); TOTAL PROTEIN 6.8 g/dL (6.4-8.2)
[2021-08-07] MEDS: PIPERACILLIN/TAZO 3.375 GM in DEXTROSE 5% 50 ML IVPB SCH (14:50)
[2021-08-07] MEDS: IRON SUCROSE COMPLEX 100MG/5ML IV SCH (14:50)
[2021-08-07] MEDS: methylPREDNISolone SOD SUCC 125 MG/2 ML IVPush SCH ×2 (14:51→20:45)
[2021-08-07 14:52] VITALS: BP 160/85
[2021-08-07] MEDS: CAPTOPRIL 12.5 MG TABLET PO SCH ×2 (14:52→20:45)
[2021-08-07] MEDS ORDERED: POTASSIUM CHLORIDE 20 MEQ TAB.ER.PRT PO ONE (18:30)
[2021-08-07 18:56] VITALS: BP 157/80
[2021-08-07] MEDS ORDERED: OxyconTIN ER 10 MG TAB.ER PO ONE (20:30)
[2021-08-08 01:33] VITALS: BP 144/76
[2021-08-08] MEDS: PIPERACILLIN/TAZO 3.375 GM in DEXTROSE 5% 50 ML IVPB SCH ×3 (02:32→14:00)
[2021-08-08] MEDS ORDERED: ONDANSETRON ODT 4 MG ONE ×2 (04:58→11:00)
[2021-08-08 05:00] LABS: BASOPHILS % (AUTO) 0 % (0-1); EOSINOPHILS % (AUTO) 0 % (1-7); LYMPHOCYTES % (AUTO) 4 % (22-44); MEAN CORPUSCULAR HEMOGLOBIN 28.5 pg (27.0-34.8); MEAN CORPUSCULAR HGB CONC 32.1 g/dL (32.4-35.8); MEAN PLATELET VOLUME 6.8 fL (7.4-10.4); MONOCYTES % (AUTO) 3 % (2-9); NEUTROPHILS % (AUTO) 93 % (42-75); PLATELET COUNT 524 x10^3/uL (130-400); RED BLOOD COUNT 2.99 x10^6/uL (3.82-5.3); RED CELL DISTRIBUTION WIDTH 18.9 % (9.6-15.2)
[2021-08-08] MEDS: LOPERAMIDE 2 MG CAPSULE PO PRN (05:00)
[2021-08-08] MEDS: ONDANSETRON 2MG/ML, 2ML IVPush PRN ×2 (05:00→11:02)
[2021-08-08 05:02] LABS: ALBUMIN 2.2 g/dL (3.4-5.0); ANION GAP 10 mmol/L (5-15); CALCIUM 8.8 mg/dL (8.5-10.1); CHLORIDE 94 mmol/L (98-107); CREATININE 2.77 mg/dL (0.55-1.02)
[2021-08-08] MEDS: methylPREDNISolone SOD SUCC 125 MG/2 ML IVPush SCH ×2 (05:02→13:30)
[2021-08-08] MEDS: HEPARIN 5,000 UNITS/ML, 1ML SQ SCH ×3 (05:02→21:26)
[2021-08-08] MEDS: DIPHENHYDRAMINE/ZINC CRM 2%, 30GM TP SCH ×4 (05:03→21:00)
[2021-08-08 07:44] VITALS: BP 156/52
[2021-08-08] MEDS ORDERED: CHOLECALCIFEROL 1,000 UNIT TABLET ONE (10:27)
[2021-08-08] MEDS: CHOLECALCIFEROL 1,000 UNIT TABLET PO SCH (10:35)
[2021-08-08] MEDS: CAPTOPRIL 12.5 MG TABLET PO SCH ×2 (10:36→21:39)
[2021-08-08] MEDS: AMOXICILLIN/CLAV 875-125MG TABLET PO SCH ×2 (10:36→21:39)
[2021-08-08] MEDS: FUROSEMIDE 80 MG TABLET PO SCH (10:37)
[2021-08-08 12:31] VITALS: BP 156/85
[2021-08-08] MEDS: DIPHENHYDRAMINE 25 MG CAPSULE PO PRN ×2 (14:50→21:53)
[2021-08-08] MEDS: METOLAZONE 5 MG TABLET PO SCH ×2 (17:00→18:11)
[2021-08-08] MEDS: ONDANSETRON ODT 4 MG PO PRN (18:18)
[2021-08-08 19:19] VITALS: BP 159/75
[2021-08-08 21:34] VITALS: BP 156/80
[2021-08-08] MEDS: BUMETANIDE 1 MG TABLET PO SCH (21:40)
[2021-08-09 00:20] VITALS: BP 157/73
[2021-08-09] MEDS: ONDANSETRON ODT 4 MG PO PRN ×4 (00:38→22:26)
[2021-08-09] MEDS: DIPHENHYDRAMINE 25 MG CAPSULE PO PRN ×2 (04:48→22:26)
[2021-08-09] MEDS: HEPARIN 5,000 UNITS/ML, 1ML SQ SCH ×3 (05:33→21:16)
[2021-08-09] MEDS: DIPHENHYDRAMINE/ZINC CRM 2%, 30GM TP SCH ×4 (05:34→21:00)
[2021-08-09] MEDS ORDERED: FAMOTIDINE 20 MG TABLET PO ONE (06:00)
[2021-08-09] MEDS ORDERED: FAMOTIDINE 20 MG TABLET PO SCH (09:00)
[2021-08-09 09:42] VITALS: BP 174/84
[2021-08-09] MEDS: CAPTOPRIL 12.5 MG TABLET PO SCH ×3 (09:48→22:15)
[2021-08-09] MEDS: METOLAZONE 5 MG TABLET PO SCH ×2 (09:49→17:52)
[2021-08-09] MEDS: CHOLECALCIFEROL 1,000 UNIT TABLET PO SCH (09:49)
[2021-08-09] MEDS: BUMETANIDE 1 MG TABLET PO SCH ×2 (09:49→22:15)
[2021-08-09] MEDS: AMOXICILLIN/CLAV 875-125MG TABLET PO SCH ×2 (09:50→22:16)
[2021-08-09 13:00] VITALS: BP 130/78
[2021-08-09 13:43] LABS: ANION GAP 12 mmol/L (5-15); CALCIUM 8.5 mg/dL (8.5-10.1); CHLORIDE 97 mmol/L (98-107); CREATININE 1.58 mg/dL (0.55-1.02)
[2021-08-09 17:50] VITALS: BP 166/90
[2021-08-09 19:53] VITALS: BP 121/70
[2021-08-09 22:14] VITALS: BP 132/67
[2021-08-09] MEDS: MELATONIN 5 MG TABLET PO PRN (22:16)
[2021-08-10] VITALS (7 sets, daily range): BP systolic 112–163; BP diastolic 46–88
[2021-08-10] MEDS: FAMOTIDINE 20 MG TABLET PO SCH ×2 (02:17→08:41)
[2021-08-10] MEDS ORDERED: OXYcodone IR 5MG TABLET PO ONE (02:30)
[2021-08-10] MEDS: DIPHENHYDRAMINE/ZINC CRM 2%, 30GM TP SCH ×4 (05:34→21:00)
[2021-08-10] MEDS: HEPARIN 5,000 UNITS/ML, 1ML SQ SCH ×3 (05:34→21:37)
[2021-08-10] MEDS: ONDANSETRON ODT 4 MG PO PRN ×2 (05:45→17:33)
[2021-08-10] MEDS: CAPTOPRIL 12.5 MG TABLET PO SCH ×3 (08:39→21:36)
[2021-08-10] MEDS: CHOLECALCIFEROL 1,000 UNIT TABLET PO SCH (08:39)
[2021-08-10] MEDS: BUMETANIDE 1 MG TABLET PO SCH (08:40)
[2021-08-10] MEDS: METOLAZONE 5 MG TABLET PO SCH (08:40)
[2021-08-10] MEDS: AMOXICILLIN/CLAV 875-125MG TABLET PO SCH ×2 (08:41→21:36)
[2021-08-10] MEDS ORDERED: FAMOTIDINE 20 MG TABLET PO SCH (09:00)
[2021-08-10] MEDS: METOPROLOL TARTRATE 25 MG TAB PO SCH ×2 (11:22→17:34)
[2021-08-10] MEDS: IRON SUCROSE COMPLEX 100MG/5ML IV SCH (11:34)
[2021-08-10] MEDS: DIPHENHYDRAMINE 25 MG CAPSULE PO PRN (19:37)
[2021-08-10] MEDS: MELATONIN 5 MG TABLET PO PRN (21:37)
[2021-08-11 00:10] VITALS: BP 121/66
[2021-08-11] MEDS: DIPHENHYDRAMINE/ZINC CRM 2%, 30GM TP SCH ×4 (05:11→21:28)
[2021-08-11] MEDS: HEPARIN 5,000 UNITS/ML, 1ML SQ SCH ×3 (05:11→21:28)
[2021-08-11 05:46] VITALS: BP 146/66
[2021-08-11] MEDS: METOPROLOL TARTRATE 25 MG TAB PO SCH ×2 (05:49→17:02)
[2021-08-11] MEDS: AMOXICILLIN/CLAV 875-125MG TABLET PO SCH ×2 (11:16→22:31)
[2021-08-11] MEDS: FAMOTIDINE 20 MG TABLET PO SCH (11:17)
[2021-08-11] MEDS: CHOLECALCIFEROL 1,000 UNIT TABLET PO SCH (11:17)
[2021-08-11 11:25] VITALS: BP 145/74
[2021-08-11] MEDS: CAPTOPRIL 12.5 MG TABLET PO SCH ×3 (11:30→17:09)
[2021-08-11 13:44] VITALS: BP 154/73
[2021-08-11 14:38] LABS: BASOPHILS % (AUTO) 0 % (0-1); EOSINOPHILS % (AUTO) 0 % (1-7); LYMPHOCYTES % (AUTO) 3 % (22-44); MEAN CORPUSCULAR HEMOGLOBIN 27.4 pg (27.0-34.8); MEAN CORPUSCULAR HGB CONC 31.9 g/dL (32.4-35.8); MEAN PLATELET VOLUME 6.3 fL (7.4-10.4); MONOCYTES % (AUTO) 4 % (2-9); NEUTROPHILS % (AUTO) 93 % (42-75); PLATELET COUNT 545 x10^3/uL (130-400); RED BLOOD COUNT 3.24 x10^6/uL (3.82-5.3); RED CELL DISTRIBUTION WIDTH 18.4 % (9.6-15.2)
[2021-08-11 14:50] LABS: ANION GAP 12 mmol/L (5-15); CHLORIDE 92 mmol/L (98-107); CREATININE 5.25 mg/dL (0.55-1.02)
[2021-08-11] MEDS: DIPHENHYDRAMINE 25 MG CAPSULE PO PRN (17:46)
[2021-08-11 18:31] VITALS: BP 124/71
[2021-08-12] VITALS (7 sets, daily range): BP systolic 102–179; BP diastolic 62–72
[2021-08-12] MEDS: CAPTOPRIL 12.5 MG TABLET PO SCH ×4 (01:45→21:59)
[2021-08-12] MEDS: HEPARIN 5,000 UNITS/ML, 1ML SQ SCH ×3 (05:31→22:00)
[2021-08-12] MEDS: METOPROLOL TARTRATE 25 MG TAB PO SCH ×2 (05:39→17:10)
[2021-08-12] MEDS: DIPHENHYDRAMINE/ZINC CRM 2%, 30GM TP SCH ×4 (06:00→21:00)
[2021-08-12] MEDS: DIPHENHYDRAMINE 25 MG CAPSULE PO PRN ×3 (06:40→22:00)
[2021-08-12] MEDS: CHOLECALCIFEROL 1,000 UNIT TABLET PO SCH (09:00)
[2021-08-12] MEDS: FAMOTIDINE 20 MG TABLET PO SCH (09:22)
[2021-08-12] MEDS ORDERED: PRED20TA PO ×2 (11:27)
[2021-08-12] MEDS ORDERED: AMOX1TAB12 PO (11:27)
[2021-08-12] MEDS ORDERED: METO25TA35 PO (11:27)
[2021-08-12] MEDS ORDERED: CAPT12.52 PO (11:27)
[2021-08-12] MEDS ORDERED: HYDR-3343 PO (11:27)
[2021-08-12] MEDS: AMOXICILLIN/CLAV 875-125MG TABLET PO SCH ×2 (12:01→23:02)
[2021-08-12 19:44] LABS: ANION GAP 10 mmol/L (5-15); CALCIUM 7.7 mg/dL (8.5-10.1); CHLORIDE 96 mmol/L (98-107); CREATININE 2.86 mg/dL (0.55-1.02)
[2021-08-12 20:11] LABS: BASOPHILS % (AUTO) 0 % (0-1); EOSINOPHILS % (AUTO) 0 % (1-7); LYMPHOCYTES % (AUTO) 5 % (22-44); MEAN CORPUSCULAR HEMOGLOBIN 27.1 pg (27.0-34.8); MEAN CORPUSCULAR HGB CONC 31.6 g/dL (32.4-35.8); MEAN PLATELET VOLUME 7.1 fL (7.4-10.4); MONOCYTES % (AUTO) 5 % (2-9); NEUTROPHILS % (AUTO) 90 % (42-75); PLATELET COUNT 604 x10^3/uL (130-400); RED BLOOD COUNT 3.69 x10^6/uL (3.82-5.3); RED CELL DISTRIBUTION WIDTH 18.8 % (9.6-15.2)
[2021-08-13] MEDS: ONDANSETRON ODT 4 MG PO PRN (03:00)
[2021-08-13 03:02] VITALS: BP 118/58
[2021-08-13] MEDS: HEPARIN 5,000 UNITS/ML, 1ML SQ SCH ×2 (05:02→14:00)
[2021-08-13] MEDS: DIPHENHYDRAMINE/ZINC CRM 2%, 30GM TP SCH ×3 (05:03→16:00)
[2021-08-13 05:14] VITALS: BP 124/65
[2021-08-13] MEDS: DIPHENHYDRAMINE 25 MG CAPSULE PO PRN (05:20)
[2021-08-13] MEDS: METOPROLOL TARTRATE 25 MG TAB PO SCH ×2 (05:21→17:57)
[2021-08-13 07:26] VITALS: BP 130/69
[2021-08-13] MEDS: FAMOTIDINE 20 MG TABLET PO SCH (09:36)
[2021-08-13] MEDS: CHOLECALCIFEROL 1,000 UNIT TABLET PO SCH (09:36)
[2021-08-13] MEDS: AMOXICILLIN/CLAV 875-125MG TABLET PO SCH (09:37)
[2021-08-13] MEDS: CAPTOPRIL 12.5 MG TABLET PO SCH ×2 (09:38→16:00)
[2021-08-13] MEDS ORDERED: DIPHENHYDRAMINE 25 MG CAPSULE PO PRN (11:30)
[2021-08-13 15:27] VITALS: BP 119/58
== END 2021-08-13 18:28 | disposition home or self-care (01) | DRG 871 ==
LOC: ED 18:39 → EDIP 20:21 → 4WST 08-04 14:52
PROVIDERS: ADMIT Internal Medicine; ATTEND Hospitalist
PROC: 5A1D70Z Performance of Urinary Filtration, Intermittent, Less than 6 Hours Per Day (ICD-10-PCS; principal; 2021-08-04)
PROC: 5A1D70Z Performance of Urinary Filtration, Intermittent, Less than 6 Hours Per Day (ICD-10-PCS; 2021-08-05)
PROC: 5A1D70Z Performance of Urinary Filtration, Intermittent, Less than 6 Hours Per Day (ICD-10-PCS; 2021-08-09)
PROC: 5A1D70Z Performance of Urinary Filtration, Intermittent, Less than 6 Hours Per Day (ICD-10-PCS; 2021-08-12)
DX: A41.9 Sepsis, unspecified organism (principal); I50.43 Acute on chronic combined systolic (congestive) and diastolic (congestive) heart failure; J15.9 Unspecified bacterial pneumonia; J96.01 Acute respiratory failure with hypoxia; N18.6 End stage renal disease; E87.1 Hypo-osmolality and hyponatremia; I13.2 Hypertensive heart and chronic kidney disease with heart failure and with stage 5 chronic kidney disease, or end stage renal disease; N17.9 Acute kidney failure, unspecified; D64.9 Anemia, unspecified; E87.6 Hypokalemia; K22.4 Dyskinesia of esophagus; R65.20 Severe sepsis without septic shock; Z20.822 Contact with and (suspected) exposure to COVID-19; Z66 Do not resuscitate; Z74.01 Bed confinement status; Z79.899 Other long term (current) drug therapy; Z86.16 Personal history of COVID-19; Z87.01 Personal history of pneumonia (recurrent); Z99.2 Dependence on renal dialysis
CPT/HCPCS: 36415; 71045; 80048; 80053; 80069; 80202; 81001; 82306; 82728; 83540; 83550; 83605; 83880; 83970; 84132; 84145; 84484; 85025; 87040; 87324; 90935; 93005; 96365; 96367; 96375; 99291; G0378; J0456; J0696; J1644; J1756; J2405; J2543; J2550; J3370; Q0162; U0005; J1200; J2930; J7050; J7512; J7517; Q0163; Q0177; U0003